=== PATIENT | male | born 1925 | race Caucasian/White ===

== ENCOUNTER 2017-05-02 16:40 | Inpatient (IN) | payer OTHER, MEDICARE ==
[~2017-05-02] VITALS: Ht 172.7 cm; Wt 54.2 kg
[2017-05-02 16:52] VITALS: BP 174/90; PULSE 97; RESP 17; TEMP 97.9; O2SAT 98
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
[2017-05-02 18:10] LABS: AUTOMATED NEUTROPHIL # 3.1 TH/MM3 (1.8-7.7); BASOPHIL % 0.5 % (0.0-2.0); EOSINOPHIL # 0.1 TH/MM3 (0-0.4); HEMATOCRIT 39.8 % (39.0-51.0); HEMOGLOBIN 13.3 GM/DL (13.0-17.0); LYMPH % 19.1 % (9.0-44.0); LYMPHOCYTE # 0.9 TH/MM3 (1.0-4.8); MEAN CELL VOLUME 89.2 FL (80.0-100.0); MEAN CORPUSCULAR HEMOGLOBIN 29.9 PG (27.0-34.0); MEAN CORPUSCULAR HGB CONC 33.6 % (32.0-36.0); MEAN PLATELET VOLUME 8.9 FL (7.0-11.0); MONO % 9.6 % (0.0-8.0); MONOCYTE # 0.4 TH/MM3 (0-0.9); NEUT % 67.8 % (16.0-70.0); PLATELET COUNT 168 TH/MM3 (150-450); RED BLOOD COUNT 4.46 MIL/MM3 (4.50-5.90); RED CELL DISTRIBUTION WIDTH 13.8 % (11.6-17.2); WHITE BLOOD COUNT 4.5 TH/MM3 (4.0-11.0)
[2017-05-02 18:16] LABS: BILIRUBIN, URINE NEG (NEG); BLOOD, URINE SMALL (NEG); GLUCOSE,URINE 1000 mg/dL (NEG); KETONE, URINE TRACE mg/dL (NEG); MUCUS URINE FEW /lpf (OCC); NITRITE,URINE NEG (NEG); SQUAMOUS EPITHELIAL CELL URINE <1 /hpf (0-5); URINE COLOR YELLOW (YELLW/STRAW); URINE LEUKOCYTE ESTERASE NEG (NEG)
--- NOTE | 2017-05-02 18:33 | RADRPT ---
EXAM DATE/TIME: 05/02/2017 18:06 [place] COMPARISON: No previous studies available for comparison. INDICATIONS : Altered mental status. RADIATION DOSE: 56.35 CTDIvol (mGy) MEDICAL HISTORY : Dementia. SURGICAL HISTORY : None. ENCOUNTER: Initial ACUITY: 2 days PAIN SCALE: Non-responsive LOCATION: cranial TECHNIQUE: Multiple contiguous axial images were obtained of the head. Using automated exposure control and adj ustment of the mA and/or kV according to patient size, radiation dose was kept as low as reasonably a chievable to obtain optimal diagnostic quality images. DICOM format image data is available electro nically for review and comparison. FINDINGS: CEREBRUM: The ventricles are normal for age. No evidence of midline shift, mass lesion, hemorrhage or acute in farction. No extra-axial fluid collections are seen. There is atrophy and chronic-appearing low atte nuation in the periventricular white matter. POSTERIOR FOSSA: The cerebellum and brainstem are intact. The 4th ventricle is midline. The cerebellopontine angle i s unremarkable. EXTRACRANIAL: The visualized portion of the orbits is intact. SKULL: The calvaria is intact. No evidence of skull fracture. CONCLUSION: No acute intracranial abnormality. Atrophy and chronic white matter changes. Clarence Fang MD on May 02, 2017 at 18:30 Board Certified Radiologist. This report was verified electronically.
[2017-05-02 18:44] LABS: ALBUMIN 3.4 GM/DL (3.4-5.0); AST (GOT) 13 U/L (15-37); BICARBONATE 26.9 MEQ/L (21.0-32.0); BLOOD UREA NITROGEN 21 MG/DL (7-18); CALCIUM 8.7 MG/DL (8.5-10.1); CHLORIDE 104 MEQ/L (98-107); CREATININE 1.58 MG/DL (0.60-1.30); GLOMERULAR FILTRATION RATE 42 ML/MIN (>89); GLUCOSE,RANDOM 308 MG/DL (74-106); SODIUM (NA) 140 MEQ/L (136-145)
[2017-05-02 18:45] LABS: ALT (GPT) 17 U/L (12-78)
[2017-05-02 18:56] LABS: ALKALINE PHOSPHATASE 100 U/L (45-117); TOTAL BILIRUBIN ADULT 0.4 MG/DL (0.2-1.0); TOTAL PROTEIN 6.7 GM/DL (6.4-8.2)
[2017-05-02] MEDS ORDERED: HALO2S PO (18:57)
[2017-05-02] MEDS ORDERED: HALO1TAB PO (18:57)
[2017-05-02] MEDS ORDERED: LORA0.5T PO (18:57)
[2017-05-02] MEDS ORDERED: SERO100T PO ×2 (18:57)
[2017-05-02] MEDS ORDERED: INSULIN HUMAN REGULAR 1,000 UNITS/10 ML VIAL IV PUSH ONE (19:30)
[2017-05-02] MEDS ORDERED: INSULIN HUMAN REGULAR 1,000 UNITS/10 ML VIAL SQ ONE (20:00)
[2017-05-03] MEDS ORDERED: LORazepam 0.5 MG TAB PO ONE (02:30)
[2017-05-03 05:50] VITALS: BP 191/88; PULSE 84; RESP 18; O2SAT 96
[2017-05-03] MEDS ORDERED: amLODIPine BESYLATE 5 MG TAB PO ONE (06:00)
[2017-05-03 08:30] VITALS: BP 147/69; PULSE 82; RESP 16; O2SAT 97
[2017-05-03 11:03] VITALS: PULSE 87; RESP 18; O2SAT 99
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
[2017-05-03] MEDS ORDERED: MAGNESIUM HYDROXIDE SUSP 30 ML CUP PO PRN (11:30)
[2017-05-03] MEDS ORDERED: ALUMINUM/MAGNESIUM/SIMETH 30 ML CUP PO PRN (11:30)
[2017-05-03] MEDS ORDERED: DEXTROSE 50% IN WATER 50 ML VIAL(D50) IV PUSH PRN (12:15)
[2017-05-03] MEDS ORDERED: GLUCAGON 1 MG/ML VIAL OTHER PRN (12:15)
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
[2017-05-03] MEDS ORDERED: DONE10TA7 PO (14:38)
[2017-05-03] MEDS ORDERED: MEMA1TAB PO (14:38)
[2017-05-03] MEDS ORDERED: CAPT25TA2 PO (14:38)
[2017-05-03] MEDS ORDERED: SIMV20TA PO (14:38)
[2017-05-03] MEDS ORDERED: TRAM50TA PO (14:38)
[2017-05-03] MEDS: SODIUM CHLOR 0.9% 1000 ML INJ 1,000 ML IV SCH (14:48)
[2017-05-03 16:17] VITALS: BP 182/93; PULSE 91; RESP 17; TEMP 98.7; O2SAT 93
[2017-05-03] MEDS: INSULIN ASPART SUPPLEMENTAL SCALE SQ SCH ×2 (16:32→20:42)
[2017-05-03] MEDS: PRAVASTATIN SOD 20 MG TAB PO SCH (20:32)
[2017-05-03] MEDS: DONEPEZIL HCL 5 MG TAB PO SCH (20:33)
[2017-05-04 06:00] VITALS: BP 104/72; PULSE 90; RESP 18; TEMP 97.3; O2SAT 97
[2017-05-04] MEDS: MEMANTINE HCL 5 MG TAB PO SCH (07:58)
[2017-05-04] MEDS: INSULIN ASPART SUPPLEMENTAL SCALE SQ SCH ×4 (07:58→20:45)
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
[2017-05-04] MEDS: SODIUM CHLOR 0.9% 1000 ML INJ 1,000 ML IV SCH (12:00)
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
[2017-05-04] MEDS ORDERED: PILL SPLITTER OTHER PRN (12:30)
[2017-05-04 14:18] LABS: BICARBONATE 26.1 MEQ/L (21.0-32.0); BLOOD UREA NITROGEN 16 MG/DL (7-18); CALCIUM 8.9 MG/DL (8.5-10.1); CHLORIDE 107 MEQ/L (98-107); CHOLESTEROL 150 MG/DL (120-200); CREATININE 1.48 MG/DL (0.60-1.30); GLOMERULAR FILTRATION RATE 45 ML/MIN (>89); GLUCOSE,RANDOM 254 MG/DL (74-106); SODIUM (NA) 141 MEQ/L (136-145)
[2017-05-04 14:25] LABS: FREE T4 0.92 NG/DL (0.76-1.46)
[2017-05-04 14:34] LABS: CHOLESTEROL/ HDL RATIO 3.78 RATIO; HDL CHOLESTEROL 39.6 MG/DL (40.0-60.0); LDL CHOLESTEROL 90 MG/DL (0-99); TRIGLYCERIDES 102 MG/DL (42-150)
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
[2017-05-04 16:52] LABS: HEMOGLOBIN A1C 11.2 % (4.3-6.0)
[2017-05-04] MEDS: cloNIDine HCL 0.1 MG TAB PO PRN (17:25)
--- NOTE | 2017-05-04 17:26 | EKG ---
Date Performed: 05/04/2017 Time Performed: 07:11:22 PTAGE: 89 years EKG: Sinus rhythm MARKED LEFT AXIS DEVIATION ABNORMAL ECG NO PREVIOUS TRACING DOCTOR: Calin Ohara Interpretating Date/Time 05/04/2017 17:25:36
[2017-05-04 18:11] VITALS: BP 179/90; PULSE 103; RESP 17; TEMP 97.3; O2SAT 99
[2017-05-04 19:02] VITALS: BP 147/79; PULSE 92
[2017-05-04] MEDS: risperiDONE 0.25 MG TAB PO SCH (20:44)
[2017-05-04] MEDS: PRAVASTATIN SOD 20 MG TAB PO SCH (20:44)
[2017-05-04] MEDS: DONEPEZIL HCL 5 MG TAB PO SCH (20:44)
[2017-05-04] MEDS ORDERED: QUEtiapine FUMARATE 25 MG TAB PO SCH (21:00)
[2017-05-04 22:26] VITALS: BP 130/79; PULSE 89
[2017-05-05] VITALS (7 sets, daily range): BP systolic 107–180; BP diastolic 58–87; PULSE 74–104; RESP 16–20; TEMP 97.3–98.5; O2SAT 96–98
[2017-05-05] MEDS: risperiDONE 0.25 MG TAB PO SCH (07:45)
[2017-05-05] MEDS: MEMANTINE HCL 5 MG TAB PO SCH (07:45)
[2017-05-05] MEDS: cloNIDine HCL 0.1 MG TAB PO PRN (07:45)
[2017-05-05] MEDS: INSULIN ASPART SUPPLEMENTAL SCALE SQ SCH ×4 (07:51→21:45)
--- NOTE | 2017-05-05 09:13 | HHI.PYPN ---
Subjective Remarks Patient seen for follow-up, chart reviewed. Discussion she staff reported the patient slept about 3 hours last evening was up this morning and at tried to elope twice but was able to be redirected. Patient was found lying on the unit this morning but reviewed in her room but to be calm and cooperative. Patient continues to be alert and oriented only to person. Patient states that his mood has been "okay" denying any depressive symptoms at this time. Patient states he has slept well despite nursing report stating the contrary. Patient reports tolerating medications well. Patient denies SI, HI, AVH or delusions. Review of Systems Except as stated in HPI: all other systems reviewed are Neg Mental Status Examination Appearance: Disheveled Consciousness: Alert Orientation: Person Motor Activity: Other (in bed) Speech: Slow Language: Adequate Fund of Knowledge: Poor (unable to evaluate) Attention and Concentration: Inadequate Memory: Impaired Mood: Appropriate Affect: Appropriate Thought Process & Associations: Intact, Linear Thought Content: Appropriate, Other (unable to determine) Hallucination Type: None Delusion Type: None Suicidal Ideation: No Suicidal Plan: No Suicidal Intention: No Homicidal Ideation: No Homicidal Plan: No Homicidal Intention: No Insight: Poor Judgment: Poor Results Labs Labs reviewed Test 05/04/17 12:55 Blood Urea Nitrogen 16 MG/DL Creatinine 1.48 MG/DL Random Glucose 254 MG/DL Calcium Level 8.9 MG/DL Sodium Level 141 MEQ/L Potassium Level 3.5 MEQ/L Chloride Level 107 MEQ/L Carbon Dioxide Level 26.1 MEQ/L Anion Gap 8 MEQ/L Estimat Glomerular Filtration Rate 45 ML/MIN Hemoglobin A1c 11.2 % Triglycerides Level 102 MG/DL Cholesterol Level 150 MG/DL LDL Cholesterol 90 MG/DL HDL Cholesterol 39.6 MG/DL Cholesterol/HDL Ratio 3.78 RATIO Vitamin B12 Level 329 PG/ML 25-Hydroxy Vitamin D Total 11.5 ng/ML Free Thyroxine 0.92 NG/DL Thyroid Stimulating Hormone 3rd Gen 1.060 uIU/ML Vitals/IOs Vital Signs Date Time Temp Pulse Resp B/P (MAP) Pulse Ox O2 Delivery O2 Flow Rate FiO2 05/05/17 08:55 92 107/58 (74) 05/05/17 05:58 97.4 16 97 05/03/17 11:03 Room Air Intake and Output 05/05/17 05/05/17 05/06/17 08:00 16:00 00:00 Intake Total 0 ml 120 ml Balance 0 ml 120 ml Assessment & Plan Problem List: (1) OTHER ALZHEIMER'S DISEASE ICD Codes: G30.8 - OTHER ALZHEIMER'S DISEASE (2) Dementia with behavioral disturbance ICD Codes: F03.91 - Unspecified dementia with behavioral disturbance Status: Acute Assessment & Plan She at this time has not had any behavioral disturbances although noted to try to elope the unit twice but was redirectable. Patient continues to be noted to be confused and disoriented although has not had any behavioral disturbances since admission but did have a threatening comment earlier this morning when woken up by staff. Patient tolerating medications well. We'll increase risperidone to 0.25 by mouth daily and 0.5 by mouth at bedtime. Continue moderate 20 behavior. Continue recommendations as per primary medical team. Continue fall precautions. Continue PT and OT. Discharge planning in progress Justification for Cont. Inpt. At risk for decompensation at lower level of care Discharge Planning Patient to be discharged to senior living when one is required. Problem Qualifiers (1) Dementia with behavioral disturbance: Qualified Codes: F03.91 - Unspecified dementia with behavioral disturbance Henry Holliday MD May 05, 2017 09:13
--- NOTE | 2017-05-05 09:46 | HHI.PR ---
Subjective Remarks Patient states he is doing ok today. Pleasantly demented. TAYLOR RN. He has been cooperative. Objective Vitals Vital Signs Date Time Temp Pulse Resp B/P (MAP) Pulse Ox O2 Delivery O2 Flow Rate FiO2 05/05/17 08:55 92 107/58 (74) 05/05/17 05:58 97.4 79 16 180/87 (118) 97 05/04/17 22:26 89 130/79 (96) 05/04/17 19:02 92 147/79 (101) 05/04/17 18:11 97.3 103 17 179/90 (119) 99 I/O 05/04/17 05/04/17 05/04/17 05/05/17 05/05/17 05/05/17 06:59 14:59 22:59 06:59 14:59 22:59 Intake Total 960 ml 720 ml 1720 ml 0 ml 120 ml Balance 960 ml 720 ml 1720 ml 0 ml 120 ml Intake Oral 960 ml 720 ml 720 ml 0 ml 120 ml IV Total 1000 ml # Voids 1 4 1 # Bowel Movements 2 2 Result Diagram: 05/02/17 1715 05/04/17 1255 Objective Remarks GENERAL: Pleasantly demented. CARDIOVASCULAR: Regular rate and rhythm. RESPIRATORY: No accessory muscle use. Clear to auscultation. Breath sounds equal bilaterally. GASTROINTESTINAL: Abdomen soft, non-tender, nondistended. Hepatic and splenic margins not palpable. MUSCULOSKELETAL: Extremities without clubbing, cyanosis, or edema. No obvious deformities. NEUROLOGICAL: Awake and alert. No obvious cranial nerve deficits. Motor grossly within normal limits. Five out of 5 muscle strength in the arms and legs. Normal speech. PSYCHIATRIC: Calm A/P Problem List: (1) DARNELL (acute kidney injury) ICD Code: N17.9 - Acute kidney failure, unspecified (2) Dementia with behavioral disturbance ICD Code: F03.91 - Unspecified dementia with behavioral disturbance Status: Acute (3) Hyperglycemia ICD Code: R73.9 - Hyperglycemia, unspecified Status: Acute Assessment and Plan 89-year-old male with history of diabetes, dementia, hypertension, hyperlipidemia, presents from [facility] under [email or web address] Act for aggressive behavior. Dementia with behavioral disturbance: Currently under [email or web address] act for aggressive behavior. -Continue management per psychiatry -Continue patient's aricept and namenda DARNELL: Patient denies any history of kidney disease. Suspect secondary to dehydration. Improving. ?close to baseline -encourage oral intake -avoid nephrotoxins -hold patient's metformin -monitor renal function Diabetes with Hyperglycemia: Uncontrolled. Hgb A1C of 11.3. At this point he requires insulin. - Start Levemir 5 units BID -monitor accu-checks and cover with SSI -hypoglycemia protocol Accelerated Hypertension: - Resume Captopril -clonidine prn -monitor BP, adjust antihypertensives as needed Hyperlipidemia: chronic -continue patient's statin DVT Prophylaxis: ambulation Problem Qualifiers (1) Dementia with behavioral disturbance: Qualified Codes: F03.91 - Unspecified dementia with behavioral disturbance Fabi Mccarthy MD May 05, 2017 09:46
[2017-05-05] MEDS: CAPTOPRIL 25 MG TAB PO SCH (17:23)
--- NOTE | 2017-05-05 21:14 | RADRPT ---
EXAM DATE/TIME: 05/05/2017 21:02 [place] COMPARISON: CT BRAIN W/O CONTRAST, May 02, 2017, 18:06. INDICATIONS : Altered mental status RADIATION DOSE: 52.13 CTDIvol (mGy) MEDICAL HISTORY : Hypertension. Diabetes mellitus type 1. Carcinoma, prostate. SURGICAL HISTORY : Appendectomy. ENCOUNTER: Subsequent ACUITY: 3 days PAIN SCALE: 0/10 LOCATION: cranial TECHNIQUE: Multiple contiguous axial images were obtained of the head. Using automated exposure control and adj ustment of the mA and/or kV according to patient size, radiation dose was kept as low as reasonably a chievable to obtain optimal diagnostic quality images. DICOM format image data is available electro nically for review and comparison. FINDINGS: Stable cerebral atrophy is noted. Periventricular and subcortical white matter small vessel ischemic changes are also again noted. There is no acute infarct, acute hemorrhage, midline shift or extra-axi al fluid collections CONCLUSION: 1. Stable cerebral atrophy and periventricular/subcortical white matter small vessel ischemic changes bilaterally. 2. No acute infarct, acute hemorrhage, mass effect or extra-axial fluid collections. Himanshu Henriquez MD on May 05, 2017 at 21:09 Board Certified Radiologist. This report was verified electronically.
[2017-05-05] MEDS: ACETAMINOPHEN 325 MG TAB PO PRN (21:44)
[2017-05-05] MEDS: DONEPEZIL HCL 5 MG TAB PO SCH (21:44)
[2017-05-05] MEDS: risperiDONE 0.5 MG TAB PO SCH (21:44)
[2017-05-05] MEDS: PRAVASTATIN SOD 20 MG TAB PO SCH (21:44)
[2017-05-05] MEDS: INSULIN DETEMIR 100 UNITS/ML VIAL SQ SCH (21:44)
[2017-05-06 00:15] VITALS: BP 189/88; PULSE 78; RESP 16; O2SAT 96
[2017-05-06] MEDS: cloNIDine HCL 0.1 MG TAB PO PRN (03:22)
[2017-05-06 04:20] VITALS: BP 172/78; PULSE 79; RESP 16; TEMP 97.5; O2SAT 98
[2017-05-06] MEDS: CAPTOPRIL 25 MG TAB PO SCH ×2 (06:43→16:00)
[2017-05-06] MEDS: INSULIN ASPART SUPPLEMENTAL SCALE SQ SCH ×4 (08:59→21:00)
[2017-05-06] MEDS: INSULIN DETEMIR 100 UNITS/ML VIAL SQ SCH ×2 (09:00→21:00)
[2017-05-06] MEDS: MEMANTINE HCL 5 MG TAB PO SCH (09:00)
[2017-05-06] MEDS: risperiDONE 0.25 MG TAB PO SCH (09:00)
--- NOTE | 2017-05-06 09:27 | HHI.PR ---
Subjective Remarks Patient had a mechanical fall yesterday evening. Head CT unremarkable. No other injuries. He reports that he is feeling okay today. He has no complaints. Objective Vitals Vital Signs Date Time Temp Pulse Resp B/P (MAP) Pulse Ox O2 Delivery O2 Flow Rate FiO2 05/06/17 04:20 97.5 79 16 172/78 (109) 98 05/06/17 00:15 78 16 189/88 (121) 96 05/05/17 20:40 97.9 74 16 165/68 (100) 96 05/05/17 19:52 97.3 85 16 132/74 (93) 96 05/05/17 18:10 97.6 91 16 125/60 (81) 97 05/05/17 17:04 98.2 92 20 169/83 (111) 97 05/05/17 16:04 98.5 104 18 131/65 (87) 98 I/O 05/05/17 05/05/17 05/05/17 05/06/17 05/06/17 05/06/17 06:59 14:59 22:59 06:59 14:59 22:59 Intake Total 0 ml 600 ml 480 ml Balance 0 ml 600 ml 480 ml Intake Oral 0 ml 600 ml 480 ml # Voids 1 3 # Bowel Movements 2 Result Diagram: 05/02/17 1715 05/04/17 1255 Objective Remarks GENERAL: Pleasantly demented. CARDIOVASCULAR: Regular rate and rhythm. RESPIRATORY: No accessory muscle use. Clear to auscultation. Breath sounds equal bilaterally. GASTROINTESTINAL: Abdomen soft, non-tender, nondistended. Hepatic and splenic margins not palpable. MUSCULOSKELETAL: Extremities without clubbing, cyanosis, or edema. No obvious deformities. NEUROLOGICAL: Awake and alert. No obvious cranial nerve deficits. Motor grossly within normal limits. Five out of 5 muscle strength in the arms and legs. Normal speech. PSYCHIATRIC: Calm A/P Problem List: (1) DARNELL (acute kidney injury) ICD Code: N17.9 - Acute kidney failure, unspecified (2) Dementia with behavioral disturbance ICD Code: F03.91 - Unspecified dementia with behavioral disturbance Status: Acute (3) Hyperglycemia ICD Code: R73.9 - Hyperglycemia, unspecified Status: Acute Assessment and Plan 89-year-old male with history of diabetes, dementia, hypertension, hyperlipidemia, presents from [facility] Act for aggressive behavior. Dementia with behavioral disturbance: Currently under [employer] act for aggressive behavior. -Continue management per psychiatry -Continue patient's aricept and namenda Mechanical fall: No injuries. - Consult PT DARNELL: Patient denies any history of kidney disease. Suspect secondary to dehydration. Improved. Seems to be at his baseline now. -encourage oral intake -avoid nephrotoxins -hold patient's metformin -monitor renal function periodically Diabetes with Hyperglycemia: Uncontrolled. Hgb A1C of 11.3. At this point he requires insulin. -Continue Levemir 5 units BID -monitor accu-checks and cover with SSI -hypoglycemia protocol Accelerated Hypertension: - Resume Captopril -clonidine prn -monitor BP, adjust antihypertensives as needed Hyperlipidemia: chronic -continue patient's statin DVT Prophylaxis: ambulation Discharge Planning We'll continue to follow blood glucose. PT consult. Problem Qualifiers (1) Dementia with behavioral disturbance: Qualified Codes: F03.91 - Unspecified dementia with behavioral disturbance Fabi Mccarthy MD May 06, 2017 09:26
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
[2017-05-06 18:06] VITALS: BP 153/86; PULSE 100; RESP 16; TEMP 97.7; O2SAT 96
[2017-05-06] MEDS: PRAVASTATIN SOD 20 MG TAB PO SCH (21:00)
[2017-05-06] MEDS: risperiDONE 0.5 MG TAB PO SCH ×2 (21:00→23:50)
[2017-05-06] MEDS: DONEPEZIL HCL 5 MG TAB PO SCH ×2 (21:00→23:50)
[2017-05-07] MEDS: CAPTOPRIL 25 MG TAB PO SCH ×2 (06:23→15:43)
[2017-05-07 06:37] VITALS: BP 177/86; PULSE 86; RESP 20; TEMP 97.3; O2SAT 95
[2017-05-07] MEDS: INSULIN ASPART SUPPLEMENTAL SCALE SQ SCH ×4 (07:55→21:00)
[2017-05-07] MEDS: INSULIN DETEMIR 100 UNITS/ML VIAL SQ SCH ×2 (07:56→21:00)
[2017-05-07] MEDS: risperiDONE 0.25 MG TAB PO SCH (07:57)
[2017-05-07] MEDS: MEMANTINE HCL 5 MG TAB PO SCH (07:57)
--- NOTE | 2017-05-07 09:05 | HHI.PR ---
Subjective Remarks in no acute distress. denies pain. d/w the RN and reported poor oral intake. no other acute issues over night. Objective Vitals Vital Signs Date Time Temp Pulse Resp B/P (MAP) Pulse Ox O2 Delivery O2 Flow Rate FiO2 05/07/17 06:37 97.3 86 20 177/86 (116) 95 05/06/17 18:06 97.7 100 16 153/86 (108) 96 I/O 05/06/17 05/06/17 05/06/17 05/07/17 05/07/17 05/07/17 07:00 15:00 23:00 07:00 15:00 23:00 Intake Total 480 ml 120 ml 240 ml 30 ml Balance 480 ml 120 ml 240 ml 30 ml Intake Oral 480 ml 120 ml 240 ml 30 ml # Voids 4 2 # Bowel Movements 3 Result Diagram: 05/04/17 1255 Imaging Last Impressions Head CT 05/05/17 0000 Signed Impressions: Service Date/Time: Friday, May 05, 2017 21:02 - CONCLUSION: 1. Stable cerebral atrophy and periventricular/subcortical white matter small vessel ischemic changes bilaterally. 2. No acute infarct, acute hemorrhage, mass effect or extra-axial fluid collections. Himanshu Henriquez MD Objective Remarks GENERAL: This is a well-nourished, well-developed patient, in no apparent distress. CARDIOVASCULAR: Regular rate and regular rhythm without murmurs, gallops, or rubs. RESPIRATORY: Clear to auscultation. Breath sounds equal bilaterally. No wheezes , rales, or rhonchi. GASTROINTESTINAL: Abdomen soft, non-tender, nondistended. Normal, active bowel sounds MUSCULOSKELETAL: Extremities without clubbing, cyanosis, or edema. NEURO: awake and alert Medications and IVs Inpatient Medications Acetaminophen (Tylenol) 650 mg Q4H PRN PO Pain 1-5 or Temp >101F Last administered on 05/05/17at 21:44; Start 05/03/17 at 11:30 Al Hydrox/Mg Hydrox/Simethicone (Mag-Al Plus Susp Liq) 30 ml Q6H PRN PO DYSPEPSIA; Start 05/03/17 at 11:30; Stop 05/03/17 at 12:45; Status DC Amlodipine Besylate (Norvasc) 2.5 mg ONCE ONCE PO Last administered on at 06:05; Start 05/03/17 at 06:00; Stop 05/03/17 at 06:01; Status DC Captopril (Capoten) 25 mg BIDAC PO Last administered on 05/07/17at 06:23; Start 05/05/17 at 16:00 Clonidine (Catapres) 0.1 mg Q6H PRN PO BP>180/100 Last administered on at 03:22; Start 05/03/17 at 12:15 Dextrose (D50w (Vial) Inj) 50 ml UNSCH PRN IV PUSH HYPOGLYCEMIA-SEE COMMENTS Last administered on 05/03/17at 23:32; Start 05/03/17 at 12:15 Donepezil HCl (Aricept) 10 mg HS PO Last administered on 05/06/17at 23:50; Start 05/03/17 at 21:00 Glucagon (Glucagon Inj) 1 mg UNSCH PRN OTHER HYPOGLYCEMIA-SEE COMMENTS; Start 05/03/17 at 12:15 Insulin Aspart (NovoLOG SUPPLEMENTAL SCALE) 1 ACHS SLIDING SCALE SQ Last administered on 05/07/17at 07:55; Start 05/03/17 at 17:00 Insulin Detemir (Levemir Inj) 5 units Q12HR SQ Last administered on 05/07/17 07 :56; Start 05/05/17 at 21:00 Insulin Human Regular (NovoLIN R INJ) 4 units ONCE ONCE SQ Last administered on 05/02/17at 19:58; Start 05/02/17 at 20:00; Stop 05/02/17 at 20:01; Status DC Lorazepam (Ativan) 0.5 mg ONCE ONCE PO Last administered on 05/03/17at 03:26; Start 05/03/17 at 02:30; Stop 05/03/17 at 02:31; Status DC Magnesium Hydroxide (Milk Of Magnesia Liq) 30 ml DAILY PRN PO CONSTIPATION; Start 05/03/17 at 11:30; Stop 05/03/17 at 12:45; Status DC Memantine (Namenda) 5 mg DAILY PO Last administered on 05/07/17at 07:57; Start at 09:00 Miscellaneous (Pill Splitter) 1 ea UNSCH PRN OTHER SEE LABEL COMMENTS; Start at 12:30 Pravastatin Sodium (Pravachol) 20 mg HS PO Last administered on 05/06/17at 21:00 ; Start 05/03/17 at 21:00 Quetiapine Fumarate (SEROquel) 12.5 mg BID PO ; Start 05/04/17 at 21:00; Stop at 21:00; Status DC Risperidone (risperDAL) 0.5 mg HS PO Last administered on 05/06/17at 23:50; Start 05/05/17 at 21:00 Sodium Chloride 1,000 ml @ 50 mls/hr Q20H IV Last administered on 05/04/17at 12 :00; Start 05/03/17 at 12:45; Stop 05/04/17 at 18:56; Status DC A/P Problem List: (1) DARNELL (acute kidney injury) ICD Code: N17.9 - Acute kidney failure, unspecified (2) Dementia with behavioral disturbance ICD Code: F03.91 - Unspecified dementia with behavioral disturbance Status: Acute (3) Hyperglycemia ICD Code: R73.9 - Hyperglycemia, unspecified Status: Acute Assessment and Plan A/P Dementia with behavioral disturbance: Currently under [place] act for aggressive behavior. -Continue management per psychiatry -Continue patient's aricept and namenda Mechanical fall: No injuries. - Consulted PT DARNELL: Patient denies any history of kidney disease. Suspect secondary to dehydration. Improved. Seems to be at his baseline now. -encourage oral intake -avoid nephrotoxins -hold patient's metformin -monitor renal function periodically Diabetes with Hyperglycemia: Uncontrolled. Hgb A1C of 11.3. At this point he requires insulin. -Continue Levemir 5 units BID -monitor accu-checks and cover with SSI -hypoglycemia protocol Accelerated Hypertension: - Resumed Captopril -clonidine prn -monitor BP, adjust antihypertensives as needed poor oral intake - will add ensure -consulted care navigator. Hyperlipidemia: chronic -continue patient's statin DVT Prophylaxis: ambulation Problem Qualifiers (1) Dementia with behavioral disturbance: Qualified Codes: F03.91 - Unspecified dementia with behavioral disturbance Gloria Goddard MD May 07, 2017 09:05
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
[2017-05-07 18:08] VITALS: BP 188/91; PULSE 82; RESP 20; TEMP 97.1; O2SAT 94
[2017-05-07] MEDS: DONEPEZIL HCL 5 MG TAB PO SCH (21:00)
[2017-05-07] MEDS: risperiDONE 0.5 MG TAB PO SCH (21:00)
[2017-05-07] MEDS: PRAVASTATIN SOD 20 MG TAB PO SCH (21:00)
[2017-05-08 05:21] VITALS: BP 100/80; PULSE 85; RESP 16; TEMP 97.5; O2SAT 98
[2017-05-08] MEDS: CAPTOPRIL 25 MG TAB PO SCH ×2 (06:37→16:00)
[2017-05-08] MEDS: INSULIN ASPART SUPPLEMENTAL SCALE SQ SCH ×4 (08:00→21:00)
--- NOTE | 2017-05-08 08:43 | HHI.PR ---
Subjective Remarks in no acute distress. denies pain. Objective Vitals Vital Signs Date Time Temp Pulse Resp B/P (MAP) Pulse Ox O2 Delivery O2 Flow Rate FiO2 05/08/17 07:49 05/08/17 05:21 97.5 85 16 100/80 (87) 98 05/07/17 18:08 97.1 82 20 188/91 (123) 94 I/O 05/07/17 05/07/17 05/07/17 05/08/17 05/08/17 05/08/17 07:00 15:00 23:00 07:00 15:00 23:00 Intake Total 240 ml 300 ml 720 ml 60 ml 0 ml Balance 240 ml 300 ml 720 ml 60 ml 0 ml Intake Oral 240 ml 300 ml 720 ml 60 ml IV Total 0 ml # Voids 2 3 1 Result Diagram: 05/04/17 1255 Imaging Last Impressions Head CT 05/05/17 0000 Signed Impressions: Service Date/Time: Friday, May 05, 2017 21:02 - CONCLUSION: 1. Stable cerebral atrophy and periventricular/subcortical white matter small vessel ischemic changes bilaterally. 2. No acute infarct, acute hemorrhage, mass effect or extra-axial fluid collections. Himanshu Henriquez MD Objective Remarks GENERAL: This is a well-nourished, well-developed patient, in no apparent distress. CARDIOVASCULAR: Regular rate and regular rhythm without murmurs, gallops, or rubs. RESPIRATORY: Clear to auscultation. Breath sounds equal bilaterally. No wheezes , rales, or rhonchi. GASTROINTESTINAL: Abdomen soft, non-tender, nondistended. Normal, active bowel sounds MUSCULOSKELETAL: Extremities without clubbing, cyanosis, or edema. NEURO: awake and alert Medications and IVs Inpatient Medications Acetaminophen (Tylenol) 650 mg Q4H PRN PO Pain 1-5 or Temp >101F Last administered on 05/05/17at 21:44; Start 05/03/17 at 11:30 Al Hydrox/Mg Hydrox/Simethicone (Mag-Al Plus Susp Liq) 30 ml Q6H PRN PO DYSPEPSIA; Start 05/03/17 at 11:30; Stop 05/03/17 at 12:45; Status DC Amlodipine Besylate (Norvasc) 2.5 mg ONCE ONCE PO Last administered on at 06:05; Start 05/03/17 at 06:00; Stop 05/03/17 at 06:01; Status DC Captopril (Capoten) 25 mg BIDAC PO Last administered on 05/08/17at 06:37; Start 05/05/17 at 16:00 Clonidine (Catapres) 0.1 mg Q6H PRN PO BP>180/100 Last administered on at 03:22; Start 05/03/17 at 12:15 Dextrose (D50w (Vial) Inj) 50 ml UNSCH PRN IV PUSH HYPOGLYCEMIA-SEE COMMENTS Last administered on 05/03/17at 23:32; Start 05/03/17 at 12:15 Donepezil HCl (Aricept) 10 mg HS PO Last administered on 05/07/17at 21:00; Start 05/03/17 at 21:00 Glucagon (Glucagon Inj) 1 mg UNSCH PRN OTHER HYPOGLYCEMIA-SEE COMMENTS; Start 05/03/17 at 12:15 Insulin Aspart (NovoLOG SUPPLEMENTAL SCALE) 1 ACHS SLIDING SCALE SQ Last administered on 05/07/17at 21:00; Start 05/03/17 at 17:00 Insulin Detemir (Levemir Inj) 5 units Q12HR SQ Last administered on 05/07/17at 21 :00; Start 05/05/17 at 21:00 Insulin Human Regular (NovoLIN R INJ) 4 units ONCE ONCE SQ Last administered on 05/02/17at 19:58; Start 05/02/17 at 20:00; Stop 05/02/17 at 20:01; Status DC Lorazepam (Ativan) 0.5 mg ONCE ONCE PO Last administered on 05/03/17at 03:26; Start 05/03/17 at 02:30; Stop 05/03/17 at 02:31; Status DC Magnesium Hydroxide (Milk Of Magnesia Liq) 30 ml DAILY PRN PO CONSTIPATION; Start 05/03/17 at 11:30; Stop 05/03/17 at 12:45; Status DC Memantine (Namenda) 5 mg DAILY PO Last administered on 05/07/17at 07:57; Start at 09:00 Miscellaneous (Pill Splitter) 1 ea UNSCH PRN OTHER SEE LABEL COMMENTS; Start at 12:30 Pravastatin Sodium (Pravachol) 20 mg HS PO Last administered on 05/07/17at 21:00 ; Start 05/03/17 at 21:00 Quetiapine Fumarate (SEROquel) 12.5 mg BID PO ; Start 05/04/17 at 21:00; Stop at 21:00; Status DC Risperidone (risperDAL) 0.5 mg HS PO Last administered on 05/07/17at 21:00; Start 05/05/17 at 21:00 Sodium Chloride 1,000 ml @ 50 mls/hr Q20H IV Last administered on 05/04/17at 12 :00; Start 05/03/17 at 12:45; Stop 05/04/17 at 18:56; Status DC A/P Problem List: (1) DARNELL (acute kidney injury) ICD Code: N17.9 - Acute kidney failure, unspecified (2) Dementia with behavioral disturbance ICD Code: F03.91 - Unspecified dementia with behavioral disturbance Status: Acute (3) Hyperglycemia ICD Code: R73.9 - Hyperglycemia, unspecified Status: Acute Assessment and Plan A/P Dementia with behavioral disturbance: Currently under Archibald act for aggressive behavior. -Continue management per psychiatry -Continue patient's aricept and namenda Mechanical fall: No injuries. - Consulted PT DARNELL: Patient denies any history of kidney disease. Suspect secondary to dehydration. Improved. Seems to be at his baseline now. -encourage oral intake -avoid nephrotoxins -hold patient's metformin -monitor renal function periodically Diabetes with Hyperglycemia: Uncontrolled. Hgb A1C of 11.3. At this point he requires insulin. -Continue Levemir 5 units BID -monitor accu-checks and cover with SSI -hypoglycemia protocol Accelerated Hypertension: - Resumed Captopril -clonidine prn -monitor BP, adjust antihypertensives as needed poor oral intake - added glucjesus garcia -consulted systems integration manager. Hyperlipidemia: chronic -continue patient's statin DVT Prophylaxis: ambulation Problem Qualifiers (1) Dementia with behavioral disturbance: Qualified Codes: F03.91 - Unspecified dementia with behavioral disturbance Gloria Goddard MD May 08, 2017 08:43
[2017-05-08] MEDS: risperiDONE 0.25 MG TAB PO SCH (08:45)
[2017-05-08] MEDS: MEMANTINE HCL 5 MG TAB PO SCH (08:45)
[2017-05-08] MEDS: INSULIN DETEMIR 100 UNITS/ML VIAL SQ SCH ×2 (08:45→21:00)
--- NOTE | 2017-05-08 11:04 | HHI.PYPN ---
Subjective Remarks Patient seen for follow, chart review. Discussion nursing staff reported the patient hasn't had any behavioral disturbances. Patient was found lying in hospital bed, cooperative. Patient continues report feeling okay, denies any physical complaints at this time, denies any medical eating or drinking or difficulty bowel movement. Patient continues to be alert and oriented only to person, confused secondary to his neurocognitive deficits. Review of Systems Except as stated in HPI: all other systems reviewed are Neg Mental Status Examination Appearance: Disheveled Consciousness: Alert Orientation: Person Motor Activity: Other (in bed) Speech: Slow Language: Adequate Fund of Knowledge: Poor (unable to evaluate) Attention and Concentration: Inadequate Memory: Impaired Mood: Appropriate Affect: Appropriate Thought Process & Associations: Intact, Linear Thought Content: Appropriate, Other (unable to determine) Hallucination Type: None Delusion Type: None Suicidal Ideation: No Suicidal Plan: No Suicidal Intention: No Homicidal Ideation: No Homicidal Plan: No Homicidal Intention: No Insight: Poor Judgment: Poor Results Vitals/IOs Vital Signs Date Time Temp Pulse Resp B/P (MAP) Pulse Ox O2 Delivery O2 Flow Rate FiO2 05/08/17 07:49 05/08/17 05:21 97.5 85 16 98 Intake and Output 05/08/17 05/08/17 05/09/17 08:00 16:00 00:00 Intake Total 60 ml Balance 60 ml Assessment & Plan Problem List: (1) OTHER ALZHEIMER'S DISEASE ICD Codes: G30.8 - OTHER ALZHEIMER'S DISEASE (2) Dementia with behavioral disturbance ICD Codes: F03.91 - Unspecified dementia with behavioral disturbance Status: Acute Assessment & Plan Patient with no behavioral disturbances recently, tolerating medications well without any adverse drug reactions. Continue current treatment. Continue to monitor mood and behavior. Continue recommendations as per primary medical team. Patient to continue on fall precautions. Continue to assist patient with ADLs. Discharge planning in progress. Justification for Cont. Inpt. At risk for further decompensation if at lower level of care Discharge Planning Patient to be placed in retirement when one is acquired Problem Qualifiers (1) Dementia with behavioral disturbance: Qualified Codes: F03.91 - Unspecified dementia with behavioral disturbance Henry Holliday MD May 08, 2017 11:04
--- NOTE | 2017-05-08 15:51 | PD.TTN ---
Patient Problems 1. Discharge planning 2. Medication compliance 3. Knowledge deficit 4. Lack of coping skills Progress Toward Goals Provider Present: Dr. Justin Holliday Provider Input: 05/08/2017 Per doctor, patient has been sun downing during the evenging; no med changes at this time Nurse(s) Present: RN Nurse(s) Input: Patient is redirectable, eating meals and taking his medication Psychiatric Counselors Present: ELLIOTT Rodriguez Psych Therapist Input: 05/08/2017 Assign counselor is working with family to establish appropriate placement Group Spec/RT/OT/[place] Present: Maxime Adler OT Group Spec/RT/OT/[place] Input: 05/08/2017; patient has been unable to participate with groups, display poor coping and communication skills Documentation Scribe: ELLIOTT Rodriguez Sandra LMHC May 08, 2017 15:51
[2017-05-08 16:23] LABS: BICARBONATE 27.7 MEQ/L (21.0-32.0); CALCIUM 8.7 MG/DL (8.5-10.1); CREATININE 1.55 MG/DL (0.60-1.30)
[2017-05-08 17:52] VITALS: BP 117/63; PULSE 96; RESP 16; TEMP 97.4; O2SAT 96
[2017-05-08] MEDS: PRAVASTATIN SOD 20 MG TAB PO SCH (21:00)
[2017-05-08] MEDS: risperiDONE 0.5 MG TAB PO SCH (21:00)
[2017-05-08] MEDS: DONEPEZIL HCL 5 MG TAB PO SCH (21:00)
[2017-05-09 06:00] VITALS: BP 160/64; PULSE 88; RESP 17; TEMP 97.9; O2SAT 92
[2017-05-09] MEDS: CAPTOPRIL 25 MG TAB PO SCH ×2 (06:34→16:00)
[2017-05-09] MEDS: INSULIN ASPART SUPPLEMENTAL SCALE SQ SCH ×4 (08:00→21:00)
[2017-05-09] MEDS: MEMANTINE HCL 5 MG TAB PO SCH (08:44)
[2017-05-09] MEDS: risperiDONE 0.25 MG TAB PO SCH (08:44)
[2017-05-09] MEDS: INSULIN DETEMIR 100 UNITS/ML VIAL SQ SCH ×2 (08:44→21:59)
--- NOTE | 2017-05-09 09:25 | HHI.PR ---
Subjective Remarks in no acute distress. awake and alert. denies pain. d/w the RN and no acute issues over night. Objective Vitals Vital Signs Date Time Temp Pulse Resp B/P (MAP) Pulse Ox O2 Delivery O2 Flow Rate FiO2 05/09/17 07:47 05/09/17 06:00 97.9 88 17 160/64 (96) 92 05/08/17 17:52 97.4 96 16 117/63 (81) 96 05/08/17 15:06 05/08/17 11:14 I/O 05/08/17 05/08/17 05/08/17 05/09/17 05/09/17 05/09/17 07:00 15:00 23:00 07:00 15:00 23:00 Intake Total 60 ml 0 ml 120 ml 90 ml Balance 60 ml 0 ml 120 ml 90 ml Intake Oral 60 ml 120 ml 90 ml IV Total 0 ml # Voids 1 2 3 Result Diagram: 05/08/17 1544 Imaging Last Impressions Head CT 05/05/17 0000 Signed Impressions: Service Date/Time: Friday, May 05, 2017 21:02 - CONCLUSION: 1. Stable cerebral atrophy and periventricular/subcortical white matter small vessel ischemic changes bilaterally. 2. No acute infarct, acute hemorrhage, mass effect or extra-axial fluid collections. Himanshu Henriquez MD Objective Remarks GENERAL: This is a well-nourished, well-developed patient, in no apparent distress. CARDIOVASCULAR: Regular rate and regular rhythm without murmurs, gallops, or rubs. RESPIRATORY: Clear to auscultation. Breath sounds equal bilaterally. No wheezes , rales, or rhonchi. GASTROINTESTINAL: Abdomen soft, non-tender, nondistended. Normal, active bowel sounds MUSCULOSKELETAL: Extremities without clubbing, cyanosis, or edema. NEURO: awake and alert Medications and IVs Inpatient Medications Acetaminophen (Tylenol) 650 mg Q4H PRN PO Pain 1-5 or Temp >101F Last administered on 05/05/17at 21:44; Start 05/03/17 at 11:30 Al Hydrox/Mg Hydrox/Simethicone (Mag-Al Plus Susp Liq) 30 ml Q6H PRN PO DYSPEPSIA; Start 05/03/17 at 11:30; Stop 05/03/17 at 12:45; Status DC Amlodipine Besylate (Norvasc) 2.5 mg ONCE ONCE PO Last administered on at 06:05; Start 05/03/17 at 06:00; Stop 05/03/17 at 06:01; Status DC Captopril (Capoten) 25 mg BIDAC PO Last administered on 05/09/17at 06:34; Start 05/05/17 at 16:00 Clonidine (Catapres) 0.1 mg Q6H PRN PO BP>180/100 Last administered on at 03:22; Start 05/03/17 at 12:15 Dextrose (D50w (Vial) Inj) 50 ml UNSCH PRN IV PUSH HYPOGLYCEMIA-SEE COMMENTS Last administered on 05/03/17at 23:32; Start 05/03/17 at 12:15 Donepezil HCl (Aricept) 10 mg HS PO Last administered on 05/08/17at 21:00; Start 05/03/17 at 21:00 Glucagon (Glucagon Inj) 1 mg UNSCH PRN OTHER HYPOGLYCEMIA-SEE COMMENTS; Start 05/03/17 at 12:15 Insulin Aspart (NovoLOG SUPPLEMENTAL SCALE) 1 ACHS SLIDING SCALE SQ Last administered on 05/07/17at 21:00; Start 05/03/17 at 17:00 Insulin Detemir (Levemir Inj) 5 units Q12HR SQ Last administered on 05/09/17at 08 :44; Start 05/05/17 at 21:00 Insulin Human Regular (NovoLIN R INJ) 4 units ONCE ONCE SQ Last administered on 05/02/17at 19:58; Start 05/02/17 at 20:00; Stop 05/02/17 at 20:01; Status DC Lorazepam (Ativan) 0.5 mg ONCE ONCE PO Last administered on 05/03/17at 03:26; Start 05/03/17 at 02:30; Stop 05/03/17 at 02:31; Status DC Magnesium Hydroxide (Milk Of Magnesia Liq) 30 ml DAILY PRN PO CONSTIPATION; Start 05/03/17 at 11:30; Stop 05/03/17 at 12:45; Status DC Memantine (Namenda) 5 mg DAILY PO Last administered on 05/09/17at 08:44; Start at 09:00 Miscellaneous (Pill Splitter) 1 ea UNSCH PRN OTHER SEE LABEL COMMENTS; Start at 12:30 Pravastatin Sodium (Pravachol) 20 mg HS PO Last administered on 05/08/17at 21:00 ; Start 05/03/17 at 21:00 Quetiapine Fumarate (SEROquel) 12.5 mg BID PO ; Start 05/04/17 at 21:00; Stop at 21:00; Status DC Risperidone (risperDAL) 0.5 mg HS PO Last administered on 05/08/17at 21:00; Start 05/05/17 at 21:00 Sodium Chloride 1,000 ml @ 50 mls/hr Q20H IV Last administered on 05/04/17at 12 :00; Start 05/03/17 at 12:45; Stop 05/04/17 at 18:56; Status DC A/P Problem List: (1) DARNELL (acute kidney injury) ICD Code: N17.9 - Acute kidney failure, unspecified (2) Dementia with behavioral disturbance ICD Code: F03.91 - Unspecified dementia with behavioral disturbance Status: Acute (3) Hyperglycemia ICD Code: R73.9 - Hyperglycemia, unspecified Status: Acute Assessment and Plan A/P Dementia with behavioral disturbance: Currently under Archibald act for aggressive behavior. -Continue management per psychiatry -Continue patient's aricept and namenda Mechanical fall: No injuries. - Consulted PT DARNELL: Patient denies any history of kidney disease. Suspect secondary to dehydration. Improved. Seems to be at his baseline now. -encourage oral intake -avoid nephrotoxins -hold patient's metformin -monitor renal function periodically Diabetes with Hyperglycemia: Uncontrolled. Hgb A1C of 11.3. At this point he requires insulin. -Continue Levemir 5 units BID -monitor accu-checks and cover with SSI -hypoglycemia protocol Accelerated Hypertension:now BP overall improved. - Resumed Captopril -clonidine prn -monitor BP, adjust antihypertensives as needed poor oral intake - added glucjesus garcia -consulted electrical discharge machine operator. Hyperlipidemia: chronic -continue patient's statin DVT Prophylaxis: ambulation Problem Qualifiers (1) Dementia with behavioral disturbance: Qualified Codes: F03.91 - Unspecified dementia with behavioral disturbance Gloria Goddard MD May 09, 2017 09:25
--- NOTE | 2017-05-09 11:32 | HHI.PYPN ---
Subjective Remarks The patient was seen today for psychiatric reevaluation. He was seen and discussed with the nurse in charge. Chart was reviewed. On psychiatric evaluation the patient is calm, superficially cooperative, confused and disoriented, but smiling often, in a good spirit. He reports feeling great. Denies depression, denies suicidal and homicidal ideation, denies visual and auditory hallucinations. Compliant with medications,and medical side effects. Review of Systems Except as stated in HPI: all other systems reviewed are Neg Mental Status Examination Appearance: Disheveled Consciousness: Alert Orientation: Person Motor Activity: Other (in bed) Speech: Slow Language: Adequate Fund of Knowledge: Poor (unable to evaluate) Attention and Concentration: Inadequate Memory: Impaired Mood: Appropriate Affect: Appropriate Thought Process & Associations: Intact, Linear Thought Content: Appropriate, Other (unable to determine) Hallucination Type: None Delusion Type: None Suicidal Ideation: No Suicidal Plan: No Suicidal Intention: No Homicidal Ideation: No Homicidal Plan: No Homicidal Intention: No Insight: Poor Judgment: Poor Results Labs Test 05/08/17 15:44 Blood Urea Nitrogen 23 MG/DL Creatinine 1.55 MG/DL Random Glucose 213 MG/DL Calcium Level 8.7 MG/DL Sodium Level 143 MEQ/L Potassium Level 4.3 MEQ/L Chloride Level 105 MEQ/L Carbon Dioxide Level 27.7 MEQ/L Anion Gap 10 MEQ/L Estimat Glomerular Filtration Rate 42 ML/MIN Vitals/IOs Vital Signs Date Time Temp Pulse Resp B/P (MAP) Pulse Ox O2 Delivery O2 Flow Rate FiO2 05/09/17 11:18 05/09/17 06:00 97.9 88 17 92 Intake and Output 05/09/17 05/09/17 05/10/17 08:00 16:00 00:00 Intake Total 90 ml Balance 90 ml Assessment & Plan Problem List: (1) OTHER ALZHEIMER'S DISEASE ICD Codes: G30.8 - OTHER ALZHEIMER'S DISEASE (2) Dementia with behavioral disturbance ICD Codes: F03.91 - Unspecified dementia with behavioral disturbance Status: Acute Assessment & Plan: No changes in psychotropics today. Assessment & Plan Estimated LOS: days Justification for Cont. Inpt. The patient needs to continue psychiatric hospitalization for stabilization and safety. Problem Qualifiers (1) Dementia with behavioral disturbance: Qualified Codes: F03.91 - Unspecified dementia with behavioral disturbance Dilip Tovar MD May 09, 2017 11:32
[2017-05-09 15:13] VITALS: TEMP 96.7
[2017-05-09 18:32] VITALS: BP 132/85; PULSE 80; RESP 16; TEMP 97.8; O2SAT 97
[2017-05-09] MEDS: risperiDONE 0.5 MG TAB PO SCH ×2 (21:00→22:00)
[2017-05-09] MEDS: DONEPEZIL HCL 5 MG TAB PO SCH (21:00)
[2017-05-09] MEDS: PRAVASTATIN SOD 20 MG TAB PO SCH ×2 (21:00→22:00)
[2017-05-10 06:26] VITALS: BP 183/91; PULSE 82; RESP 20; TEMP 97.2; O2SAT 98
[2017-05-10] MEDS: CAPTOPRIL 25 MG TAB PO SCH ×2 (07:00→16:00)
[2017-05-10] MEDS: INSULIN ASPART SUPPLEMENTAL SCALE SQ SCH ×4 (07:27→21:00)
[2017-05-10] MEDS: INSULIN DETEMIR 100 UNITS/ML VIAL SQ SCH ×2 (09:01→22:38)
[2017-05-10] MEDS: risperiDONE 0.25 MG TAB PO SCH (09:01)
[2017-05-10] MEDS: MEMANTINE HCL 5 MG TAB PO SCH (09:01)
--- NOTE | 2017-05-10 09:25 | HHI.PR ---
Subjective Remarks in no distress. resting comfortably. Objective Vitals Vital Signs Date Time Temp Pulse Resp B/P (MAP) Pulse Ox O2 Delivery O2 Flow Rate FiO2 05/10/17 06:26 97.2 82 20 183/91 (121) 98 05/09/17 18:32 97.8 80 16 132/85 (101) 97 05/09/17 15:13 96.7 05/09/17 11:18 I/O 05/09/17 05/09/17 05/09/17 05/10/17 05/10/17 05/10/17 07:00 15:00 23:00 07:00 15:00 23:00 Intake Total 90 ml 120 ml 60 ml Balance 90 ml 120 ml 60 ml Intake Oral 90 ml 120 ml 60 ml # Voids 3 1 1 Result Diagram: 05/08/17 1544 Imaging Last Impressions Head CT 05/05/17 0000 Signed Impressions: Service Date/Time: Friday, May 05, 2017 21:02 - CONCLUSION: 1. Stable cerebral atrophy and periventricular/subcortical white matter small vessel ischemic changes bilaterally. 2. No acute infarct, acute hemorrhage, mass effect or extra-axial fluid collections. Himanshu Henriquez MD Objective Remarks GENERAL: This is a well-nourished, well-developed patient, in no apparent distress. CARDIOVASCULAR: Regular rate and regular rhythm without murmurs, gallops, or rubs. RESPIRATORY: Clear to auscultation. Breath sounds equal bilaterally. No wheezes , rales, or rhonchi. GASTROINTESTINAL: Abdomen soft, non-tender, nondistended. Normal, active bowel sounds MUSCULOSKELETAL: Extremities without clubbing, cyanosis, or edema. NEURO: awake and alert Medications and IVs Inpatient Medications Acetaminophen (Tylenol) 650 mg Q4H PRN PO Pain 1-5 or Temp >101F Last administered on 05/05/17at 21:44; Start 05/03/17 at 11:30 Al Hydrox/Mg Hydrox/Simethicone (Mag-Al Plus Susp Liq) 30 ml Q6H PRN PO DYSPEPSIA; Start 05/03/17 at 11:30; Stop 05/03/17 at 12:45; Status DC Amlodipine Besylate (Norvasc) 2.5 mg ONCE ONCE PO Last administered on at 06:05; Start 05/03/17 at 06:00; Stop 05/03/17 at 06:01; Status DC Captopril (Capoten) 25 mg BIDAC PO Last administered on 05/09/17at 16:00; Start 05/05/17 at 16:00 Clonidine (Catapres) 0.1 mg Q6H PRN PO BP>180/100 Last administered on at 03:22; Start 05/03/17 at 12:15 Dextrose (D50w (Vial) Inj) 50 ml UNSCH PRN IV PUSH HYPOGLYCEMIA-SEE COMMENTS Last administered on 05/03/17at 23:32; Start 05/03/17 at 12:15 Donepezil HCl (Aricept) 10 mg HS PO Last administered on 05/08/17at 21:00; Start 05/03/17 at 21:00 Glucagon (Glucagon Inj) 1 mg UNSCH PRN OTHER HYPOGLYCEMIA-SEE COMMENTS; Start 05/03/17 at 12:15 Insulin Aspart (NovoLOG SUPPLEMENTAL SCALE) 1 ACHS SLIDING SCALE SQ Last administered on 05/09/17at 11:23; Start 05/03/17 at 17:00 Insulin Detemir (Levemir Inj) 5 units Q12HR SQ Last administered on 05/10/17at 09 :01; Start 05/05/17 at 21:00 Insulin Human Regular (NovoLIN R INJ) 4 units ONCE ONCE SQ Last administered on 05/02/17at 19:58; Start 05/02/17 at 20:00; Stop 05/02/17 at 20:01; Status DC Lorazepam (Ativan) 0.5 mg ONCE ONCE PO Last administered on 05/03/17at 03:26; Start 05/03/17 at 02:30; Stop 05/03/17 at 02:31; Status DC Magnesium Hydroxide (Milk Of Magnesia Liq) 30 ml DAILY PRN PO CONSTIPATION; Start 05/03/17 at 11:30; Stop 05/03/17 at 12:45; Status DC Memantine (Namenda) 5 mg DAILY PO Last administered on 05/10/17at 09:01; Start at 09:00 Miscellaneous (Pill Splitter) 1 ea UNSCH PRN OTHER SEE LABEL COMMENTS; Start at 12:30 Pravastatin Sodium (Pravachol) 20 mg HS PO Last administered on 05/08/17at 21:00 ; Start 05/03/17 at 21:00 Quetiapine Fumarate (SEROquel) 12.5 mg BID PO ; Start 05/04/17 at 21:00; Stop at 21:00; Status DC Risperidone (risperDAL) 0.5 mg HS PO Last administered on 05/08/17at 21:00; Start 05/05/17 at 21:00 Sodium Chloride 1,000 ml @ 50 mls/hr Q20H IV Last administered on 05/04/17at 12 :00; Start 05/03/17 at 12:45; Stop 05/04/17 at 18:56; Status DC A/P Problem List: (1) DARNELL (acute kidney injury) ICD Code: N17.9 - Acute kidney failure, unspecified (2) Dementia with behavioral disturbance ICD Code: F03.91 - Unspecified dementia with behavioral disturbance Status: Acute (3) Hyperglycemia ICD Code: R73.9 - Hyperglycemia, unspecified Status: Acute Assessment and Plan A/P Dementia with behavioral disturbance: Currently under Archibald act for aggressive behavior. -Continue management per psychiatry -Continue patient's aricept and namenda Mechanical fall: No injuries. - Consulted PT DARNELL: Patient denies any history of kidney disease. Suspect secondary to dehydration. Improved. Seems to be at his baseline now. -encourage oral intake -avoid nephrotoxins -hold patient's metformin -monitor renal function periodically Diabetes with Hyperglycemia: Uncontrolled. Hgb A1C of 11.3. At this point he requires insulin. -Continue Levemir 5 units BID -monitor accu-checks and cover with SSI -hypoglycemia protocol Accelerated Hypertension:now BP overall improved. - continue Captopril -clonidine prn -monitor BP, adjust antihypertensives as needed poor oral intake - added david garcia -consulted third steel pourer. Hyperlipidemia: chronic -continue patient's statin DVT Prophylaxis: ambulation Problem Qualifiers (1) Dementia with behavioral disturbance: Qualified Codes: F03.91 - Unspecified dementia with behavioral disturbance Gloria Goddard MD May 10, 2017 09:25
--- NOTE | 2017-05-10 10:44 | HHI.PYPN ---
Subjective Remarks The patient was seen today for psychiatric reevaluation, he is minimally cooperative, he is alert can answer some questions, he is smiles very often, but he is pleasantly disoriented, confused. No agitation or aggressive behavior reported. He has been eating about 25% of his meals, compliant with medications, no seems side effects. Mental Status Examination Appearance: Disheveled Consciousness: Alert Orientation: Person Motor Activity: Other (in bed) Speech: Slow Language: Adequate Fund of Knowledge: Poor (unable to evaluate) Attention and Concentration: Inadequate Memory: Impaired Mood: Appropriate Affect: Appropriate Thought Process & Associations: Intact, Linear Thought Content: Appropriate, Other (unable to determine) Hallucination Type: None Delusion Type: None Suicidal Ideation: No Suicidal Plan: No Suicidal Intention: No Homicidal Ideation: No Homicidal Plan: No Homicidal Intention: No Insight: Poor Judgment: Poor Results Vitals/IOs Vital Signs Date Time Temp Pulse Resp B/P (MAP) Pulse Ox O2 Delivery O2 Flow Rate FiO2 05/10/17 06:26 97.2 82 20 183/91 (121) 98 Intake and Output 05/10/17 05/10/17 05/11/17 08:00 16:00 00:00 Intake Total 60 ml Balance 60 ml Assessment & Plan Problem List: (1) OTHER ALZHEIMER'S DISEASE ICD Codes: G30.8 - OTHER ALZHEIMER'S DISEASE (2) Dementia with behavioral disturbance ICD Codes: F03.91 - Unspecified dementia with behavioral disturbance Status: Acute Assessment & Plan Estimated LOS: days Justification for Cont. Inpt. Patient has an elevated risk to decompensate at a lower level of care. Continue current psychotropics. Problem Qualifiers (1) Dementia with behavioral disturbance: Qualified Codes: F03.91 - Unspecified dementia with behavioral disturbance Dilip Tovar MD May 10, 2017 10:44
[2017-05-10 18:30] VITALS: BP 173/77; PULSE 79; RESP 16; TEMP 98.2; O2SAT 96
[2017-05-10] MEDS: DONEPEZIL HCL 5 MG TAB PO SCH (21:00)
[2017-05-10] MEDS: risperiDONE 0.5 MG TAB PO SCH (22:33)
[2017-05-10] MEDS: PRAVASTATIN SOD 20 MG TAB PO SCH (22:34)
[2017-05-11 05:00] VITALS: BP 173/82; PULSE 84; RESP 19; TEMP 98.2; O2SAT 95
[2017-05-11] MEDS: SODIUM CHLOR 0.9% 1000 ML INJ 1,000 ML IV SCH ×2 (05:45→09:45)
[2017-05-11] MEDS: CAPTOPRIL 25 MG TAB PO SCH ×2 (06:27→16:00)
[2017-05-11] MEDS: INSULIN ASPART SUPPLEMENTAL SCALE SQ SCH ×4 (08:00→21:00)
[2017-05-11] MEDS: INSULIN DETEMIR 100 UNITS/ML VIAL SQ SCH ×2 (09:00→21:00)
[2017-05-11] MEDS: risperiDONE 0.25 MG TAB PO SCH (09:58)
[2017-05-11] MEDS: MEMANTINE HCL 5 MG TAB PO SCH (09:58)
--- NOTE | 2017-05-11 10:17 | HHI.PR ---
Subjective Remarks Patient denies any pain. Denies any chest pain or shortness of breath. No acute changes per nursing. Objective Vital Signs Date Time Temp Pulse Resp B/P (MAP) Pulse Ox O2 Delivery O2 Flow Rate FiO2 05/11/17 05:00 98.2 84 19 173/82 (112) 95 05/10/17 18:30 98.2 79 16 173/77 (109) 96 I/O 05/10/17 05/10/17 05/10/17 05/11/17 05/11/17 05/11/17 07:00 15:00 23:00 07:00 15:00 23:00 Intake Total 120 ml 480 ml Balance 120 ml 480 ml Intake Oral 120 ml 480 ml # Voids 1 Result Diagram: 05/08/17 1544 Objective Remarks GENERAL: Lying in bed. Appears comfortable. SKIN: Warm and dry. HEAD: Normocephalic. EYES: No scleral icterus. No injection or drainage. NECK: Supple, trachea midline. No JV. CARDIOVASCULAR: Regular rate and rhythm without murmurs, gallops, or rubs. RESPIRATORY: Breath sounds equal bilaterally. No accessory muscle use. GASTROINTESTINAL: Abdomen soft, non-tender, nondistended. MUSCULOSKELETAL: No cyanosis, or edema. BACK: Nontender without obvious deformity. No CVA tenderness. A/P Assessment and Plan //Dementia with behavioral disturbance: Currently under Archibald act for aggressive behavior. -Continue management per psychiatry -Continue patient's aricept and namenda //Mechanical fall: No injuries. - Consulted PT //DARNELL: Patient denies any history of kidney disease. Suspect secondary to dehydration. Improved. Seems to be at his baseline now. -encourage oral intake -avoid nephrotoxins -hold patient's metformin -monitor renal function periodically. Most recent creatinine 1.5 on 05/08. //Diabetes with Hyperglycemia: Uncontrolled. Hgb A1C of 11.3. At this point he requires insulin. -Continue Levemir 5 units BID -monitor accu-checks and cover with SSI -hypoglycemia protocol //Accelerated Hypertension:now BP overall improved. - continue Captopril -clonidine prn -monitor BP, adjust antihypertensives as needed. Blood pressure elevated. Patient refused medications yesterday. Patient nursing assistance with compliance //poor oral intake - added david garcia -consulted veneer stacker. Appreciate assistance. //Hyperlipidemia: chronic -continue patient's statin //DVT Prophylaxis: ambulation Carlton Jones MD May 11, 2017 10:17
--- NOTE | 2017-05-11 12:41 | HHI.PYPN ---
Subjective Remarks Patient seen for follow-up,chart reviewed. A discussion nursing staff reported the patient has now required IV fluids as patient has been having poor fluid intake as well as poor urine output. Patient has not had any behavioral issues. Patient was found lying in hospital bed, cooperative. Patient continues to be confused and alert and oriented only to person. Patient states he is feeling fine denying any physical complaints at this time patient was encouraged to maintain adequate fluid intake as well as nutritional intake which patient agrees. He denies any perceptual disturbances or delusions at this time. Review of Systems Except as stated in HPI: all other systems reviewed are Neg Mental Status Examination Appearance: Disheveled Consciousness: Alert Orientation: Person Motor Activity: Other (in bed) Speech: Slow Language: Adequate Fund of Knowledge: Poor (unable to evaluate) Attention and Concentration: Inadequate Memory: Impaired Mood: Appropriate Affect: Appropriate Thought Process & Associations: Intact, Linear Thought Content: Appropriate, Other (unable to determine) Hallucination Type: None Delusion Type: None Suicidal Ideation: No Suicidal Plan: No Suicidal Intention: No Homicidal Ideation: No Homicidal Plan: No Homicidal Intention: No Insight: Poor Judgment: Poor Results Vitals/IOs Vital Signs Date Time Temp Pulse Resp B/P (MAP) Pulse Ox O2 Delivery O2 Flow Rate FiO2 05/11/17 05:00 98.2 84 19 173/82 (112) 95 Assessment & Plan Problem List: (1) OTHER ALZHEIMER'S DISEASE ICD Codes: G30.8 - OTHER ALZHEIMER'S DISEASE (2) Dementia with behavioral disturbance ICD Codes: F03.91 - Unspecified dementia with behavioral disturbance Status: Acute Assessment & Plan Patient at this time continues to be confused and disoriented, no behavioral disturbances noted, tolerating medications well. Patient will continue on IV hydration encourage adequate by mouth fluid intake as well as additional intake. Continue to assist patient with meals. Continue current treatment. Continue her medications as per primary medical team. Patient likely be discharged to a nursing facility on 05/14/17. Discharge planning in progress Justification for Cont. Inpt. At risk for further decompensation if at lower level of care Discharge Planning Nursing facility Problem Qualifiers (1) Dementia with behavioral disturbance: Qualified Codes: F03.91 - Unspecified dementia with behavioral disturbance Henry Holliday MD May 11, 2017 12:41
--- NOTE | 2017-05-11 14:17 | PD.TTN ---
Patient Problems 1. Discharge planning 2. Medication compliance 3. Knowledge deficit 4. Lack of coping skills Progress Toward Goals Provider Present: Dr. Justin Holliday Provider Input: 05/08/2017 Per doctor, patient has been sun downing during the evenging; no med changes at this time 05/11/17; meets criteria. Anticipated DC date 05/14/17 Nurse(s) Present: RN Nurse(s) Input: Patient is redirectable, eating meals and taking his medication Psychiatric Counselors Present: ELLIOTT Rodriguez Psych Therapist Input: 05/08/2017 Assign counselor is working with family to establish appropriate placement 05/11/17; pt will be discharged to [facility] on 05-14-17. Group Spec/RT/OT/[place] Present: Maxime Adler OT Group Spec/RT/OT/[place] Input: 05/08/2017; patient has been unable to participate with groups, display poor coping and communication skills Documentation Scribe: ELLIOTT Rodriguez Lane Jr, SEC REPORTING CONSULTANT May 11, 2017 14:17
[2017-05-11 18:00] VITALS: BP 140/68; PULSE 78; RESP 16; TEMP 97.9; O2SAT 96
[2017-05-11] MEDS: DONEPEZIL HCL 5 MG TAB PO SCH (21:00)
[2017-05-11] MEDS: risperiDONE 0.5 MG TAB PO SCH (21:00)
[2017-05-11] MEDS: PRAVASTATIN SOD 20 MG TAB PO SCH (21:00)
[2017-05-12 06:00] VITALS: BP 144/80; PULSE 73; RESP 14; TEMP 97.5; O2SAT 96
[2017-05-12] MEDS: CAPTOPRIL 25 MG TAB PO SCH ×2 (06:24→16:00)
[2017-05-12] MEDS: INSULIN ASPART SUPPLEMENTAL SCALE SQ SCH ×4 (08:00→20:57)
[2017-05-12] MEDS: INSULIN DETEMIR 100 UNITS/ML VIAL SQ SCH ×2 (09:00→20:45)
--- NOTE | 2017-05-12 09:41 | HHI.PR ---
Subjective Remarks was mostly sleeping on my arrival denies any overnight issues noted to be coughing, when asked- stated this is chronic reports he has been feeling tired Objective Vitals Vital Signs Date Time Temp Pulse Resp B/P (MAP) Pulse Ox O2 Delivery O2 Flow Rate FiO2 05/12/17 06:00 97.5 73 14 144/80 (101) 96 05/11/17 18:00 97.9 78 16 140/68 (92) 96 I/O 05/11/17 05/11/17 05/11/17 05/12/17 05/12/17 05/12/17 07:00 15:00 23:00 07:00 15:00 23:00 Intake Total 600 ml 840 ml 240 ml 240 ml Balance 600 ml 840 ml 240 ml 240 ml Intake Oral 600 ml 840 ml 240 ml 240 ml # Voids 2 1 Result Diagram: 05/08/17 1544 Objective Remarks awake, alert, oriented, not in distress hard of hearing - with hearing aid on the left left eye exopthalamos coughing but unable to expectorate heart rate is regular, no murmur lung sounds are equal bilaterally, no rales or wheezing abdomen soft , non tender, no rebound lower extremities with no edema or asymmetry A/P Problem List: (1) DARNELL (acute kidney injury) ICD Code: N17.9 - Acute kidney failure, unspecified (2) Dementia with behavioral disturbance ICD Code: F03.91 - Unspecified dementia with behavioral disturbance Status: Acute (3) Hyperglycemia ICD Code: R73.9 - Hyperglycemia, unspecified Status: Acute Assessment and Plan Impression/ Plan: oliver act / dementia with behavior disturbance by hx- currently calm, able to give his med hx, but not able to recall specifics at times htn - will not do tight control in elderly with dehydration, high fall risk- check BP only while sitting up dm hard of hearing high fall risk with hx of fall- no injury on imaging - PT following DARNELL-per notes; possible CKD in elderly- with htn, dm, and no prior labs- but also has poor oral intake; avoid nephrotoxins, d/c metformin; encourage po intake; d/c iv fluids as pt is elderly with now cough, no improvement in renal function despite iv fluids (thus likely ckd) DM- A1C 11.3; on ssi, levemir 5 units bid Poor oral intake- glucerna/ monomer purification operator on case Hyperlipidemia- on statin dvt prophylaxis with ambulation pt is medically cleared to be transferred to regular psychiatry floor Discharge Planning per psychiatry team Problem Qualifiers (1) Dementia with behavioral disturbance: Qualified Codes: F03.91 - Unspecified dementia with behavioral disturbance Dominga Sanchez MD May 12, 2017 09:41
[2017-05-12] MEDS: risperiDONE 0.25 MG TAB PO SCH (10:33)
[2017-05-12] MEDS: MEMANTINE HCL 5 MG TAB PO SCH (10:33)
--- NOTE | 2017-05-12 12:44 | HHI.PYPN ---
Subjective Remarks On psychiatric evaluation today patient is pleasantly confused and demented, minimally engageable in the conversation, answer with monosyllables yes and no. There is no evidence of distress or pain, no suicidal or homicidal ideation, no visual or auditory hallucinations. In the last 24 hours there is no report of agitation and aggressive behavior, the patient is compliant with his medications, no significant side effects present. Review of Systems Except as stated in HPI: all other systems reviewed are Neg Mental Status Examination Appearance: Disheveled Consciousness: Alert Orientation: Person Motor Activity: Other (in bed) Speech: Slow Language: Adequate Fund of Knowledge: Poor (unable to evaluate) Attention and Concentration: Inadequate Memory: Impaired Mood: Appropriate Affect: Appropriate Thought Process & Associations: Intact, Linear Thought Content: Appropriate, Other (unable to determine) Hallucination Type: None Delusion Type: None Suicidal Ideation: No Suicidal Plan: No Suicidal Intention: No Homicidal Ideation: No Homicidal Plan: No Homicidal Intention: No Insight: Poor Judgment: Poor Results Vitals/IOs Vital Signs Date Time Temp Pulse Resp B/P (MAP) Pulse Ox O2 Delivery O2 Flow Rate FiO2 05/12/17 06:00 97.5 73 14 144/80 (101) 96 Intake and Output 05/12/17 05/12/17 05/13/17 08:00 16:00 00:00 Intake Total 240 ml 240 ml Balance 240 ml 240 ml Assessment & Plan Problem List: (1) OTHER ALZHEIMER'S DISEASE ICD Codes: G30.8 - OTHER ALZHEIMER'S DISEASE (2) Dementia with behavioral disturbance ICD Codes: F03.91 - Unspecified dementia with behavioral disturbance Status: Acute Assessment & Plan: Continue current psychotropic regimen. Assessment & Plan Estimated LOS: days Justification for Cont. Inpt. Patient has an increased risk to decompensate at a lower level of care. Problem Qualifiers (1) Dementia with behavioral disturbance: Qualified Codes: F03.91 - Unspecified dementia with behavioral disturbance Dilip Tovar MD May 12, 2017 12:44
[2017-05-12] MEDS: ACETAMINOPHEN 325 MG TAB PO PRN (18:25)
[2017-05-12 18:30] VITALS: BP 134/65; PULSE 77; RESP 16; TEMP 97.7; O2SAT 96
[2017-05-12] MEDS: risperiDONE 0.5 MG TAB PO SCH (20:46)
[2017-05-12] MEDS: PRAVASTATIN SOD 20 MG TAB PO SCH (20:46)
[2017-05-12] MEDS: DONEPEZIL HCL 5 MG TAB PO SCH (20:57)
[2017-05-13 05:43] VITALS: BP 153/78; PULSE 76; RESP 17; TEMP 97.7; O2SAT 96
[2017-05-13] MEDS: CAPTOPRIL 25 MG TAB PO SCH (07:00)
[2017-05-13] MEDS: INSULIN ASPART SUPPLEMENTAL SCALE SQ SCH (08:00)
[2017-05-13] MEDS: risperiDONE 0.25 MG TAB PO SCH (08:13)
[2017-05-13] MEDS: MEMANTINE HCL 5 MG TAB PO SCH (08:13)
[2017-05-13] MEDS: INSULIN DETEMIR 100 UNITS/ML VIAL SQ SCH (09:00)
[2017-05-13] MEDS ORDERED: CAPT25TA2 PO (09:13)
[2017-05-13] MEDS ORDERED: DONE10TA7 PO (09:13)
[2017-05-13] MEDS ORDERED: LEVEMIR SQ (09:13)
[2017-05-13] MEDS ORDERED: PRAV20TA PO (09:13)
[2017-05-13] MEDS ORDERED: RISP0.5T25 PO (09:13)
[2017-05-13] MEDS ORDERED: RISP.25 PO (09:13)
[2017-05-13] MEDS ORDERED: MEMA1TAB PO (09:13)
--- NOTE | 2017-05-13 09:14 | HHI.DS ---
Psychiatry Discharge Summary Inpatient Psychiatric care?: Yes Advance Directive: No Reason Not Provided: Due to Patient Condition Mental Health AdvanceDirective: No Health Care Proxy: No Admission Admission Date May 03, 2017 at 11:20 Admission Diagnosis: (1) OTHER ALZHEIMER'S DISEASE ICD Code: G30.8 - OTHER ALZHEIMER'S DISEASE (2) Dementia with behavioral disturbance ICD Code: F03.91 - Unspecified dementia with behavioral disturbance Brief History Patient is a man, , domiciled with family with a past psychiatric history of dementia, has hospice care, was brought in under [employer] act from [facility] due to aggressive and volume behavior towards family as well as having swung at a nurse which patient was admitted to the inpatient psychiatry unit for further stabilization. As per collateral obtained in the ED from patient's daughter, Ita Bailey ([phone]) patient previously on Haldol and Ativan and recently had tried to leave the home and get into his car, was stopped from doing this patient had become aggressive. She was found lying in hospital bed noted to have difficulty with hearing require a hearing aid but history was very difficult to obtain due to patient's neurocognitive disorder. Patient reports feeling "fairly well", alert and oriented only to person and to "hospital". Patient states that he is living with his mother and that the reason he is in the hospital because his mother had brought him here due to him having recent falls. Patient denies any manic depressive or psychotic symptoms at this time. Patient continues to be noted to be confused and states that he does not have any children. Patient denies any physical completed at this time. The patient is a 89 years old man, , domiciled with family, past psychiatric history of dementia, no previous psychiatric hospitalizations, no previous suicidal attempts, medical history hypertension, hyperlipidemia, diabetes, he has hospice care basis, who was brought under [employer] act due to aggressive behavior with family members. He was consulted to me for second opinion. On psychiatric evaluation the patient is calm, superficially cooperative, in a good stated, pleasantly demented confused. He doesn't know the reason he is here. Patient contact me his name, but he doesn't know where he is and he doesn't know the time. He denies suicidal and homicidal ideation, he denies visual and auditory hallucinations. Tobacco Use In Past 30 Days: No Tobacco Past 30 Days Alcohol Use: Never Hospital Course Patient is a man, , domiciled with family with a past psychiatric history of dementia, has hospice care, was brought in under Archibald act from [facility] due to aggressive and volume behavior towards family as well as having swung at a nurse which patient was admitted to the inpatient psychiatry unit for further stabilization. Patient was started on quetiapine and titrated up to 0.25mg daily and 0.5 at bedtime which patient tolerated well and noted to be calm and cooperative with staff. He was noted to be irritable at times and occasional episodes of agitation as he continued to have episodes of more confusion but had no recurrence of agitation toward end of admission. Patient was observed to have confusion at baseline secondary to neurocognitive deficits. Patient was observed to have poor immediate and recall memory, alert and oriented only to person and at times to place. Patient was noted to have been compliant with treatment with encouragement, cooperative with staff. Upon discharge patient stated that she was feeling good, denied any psychotic symptoms, denied any SI , HI or delusions. Patient agreed to continue medication regimen and outpatient follow up for continuity of care. I have counseled the patient regarding warning signs for need to return to the psychiatric emergency room as part of a general safety plan. Patient advised to call 911 or go nearest ED in case of emergency. Patient agrees with plan. Results Blood Pressure 153 / 78 Vital Signs Date Time Temp Pulse Resp B/P (MAP) Pulse Ox O2 Delivery O2 Flow Rate FiO2 05/13/17 05:43 97.7 76 17 153/78 (103) 96 Laboratory Results Test 05/04/17 12:55 Cholesterol Level 150 MG/DL (120-200) HDL Cholesterol 39.6 MG/DL (40.0-60.0) Hemoglobin A1c 11.2 % (4.3-6.0) LDL Cholesterol 90 MG/DL (0-99) Triglycerides Level 102 MG/DL (42-150) Summary of Procedures None Imaging Last Impressions Head CT 05/05/17 0000 Signed Impressions: Service Date/Time: Friday, May 05, 2017 21:02 - CONCLUSION: 1. Stable cerebral atrophy and periventricular/subcortical white matter small vessel ischemic changes bilaterally. 2. No acute infarct, acute hemorrhage, mass effect or extra-axial fluid collections. Himanshu Henriquez MD Pending results at discharge: No Medications # of Antipsychotic meds at D/C: 1 Approp Antipsych med options 1 - Minimum of three failed multiple trials of monotherapy. 2 - Documented plan to taper to monotherapy due to previous use of multiple meds OR cross-taper in progress at D/C. 3 - Documentation of augmentation of Clozapine. 4 - Justification other than those listed in allowable values 1-3, document here : Discharge Discharge Date: May 13, 2017 Discharge Diagnosis: (1) OTHER ALZHEIMER'S DISEASE ICD Code: G30.8 - OTHER ALZHEIMER'S DISEASE (2) Dementia with behavioral disturbance ICD Code: F03.91 - Unspecified dementia with behavioral disturbance Status: Acute Pt Condition on Discharge: Stable Discharge Disposition: Discharge to SNF Discharge Instructions Diet Instructions: Heart Healthy Diet Activities you can perform: Weight Bearing as Milly Discharge Time > 30 minutes Mental Status Examination Appearance: Disheveled Consciousness: Alert Orientation: Person Motor Activity: Other (in bed) Speech: Slow Language: Adequate Fund of Knowledge: Poor (unable to evaluate) Attention and Concentration: Inadequate Memory: Impaired Mood: Appropriate Affect: Appropriate Thought Process & Associations: Intact, Linear Thought Content: Appropriate, Other (unable to determine) Hallucination Type: None Delusion Type: None Suicidal Ideation: No Suicidal Plan: No Suicidal Intention: No Homicidal Ideation: No Homicidal Plan: No Homicidal Intention: No Insight: Poor Judgment: Poor Discharge/Advance Care Plan Health Problems: (1) OTHER ALZHEIMER'S DISEASE (2) Dementia with behavioral disturbance Goals to promote your health * To prevent worsening of your condition and complications * To maintain your health at the optimal level Directions to meet your goals Take your medications as prescribed Follow your dietary instruction Follow activity as directed Keep your appointments as scheduled Take your immunizations and boosters as scheduled If your symptoms worsen call your PCP, if no PCP go to Urgent Care Center or Emergency Room For 27/10 questions related to your inpatient stay or results of tests pending at discharge, please contact Dr. Henry Holliday at Smoking is Dangerous to Your Health. Avoid second hand smoking Problem Qualifiers (1) Dementia with behavioral disturbance: Qualified Codes: F03.91 - Unspecified dementia with behavioral disturbance Henry Holliday MD May 13, 2017 09:14
== END 2017-05-13 12:15 | DRG 57 ==
LOC: NEPD 16:40 → NEDA 05-03 11:20 → H4EA 05-03 13:30
PROVIDERS: ADMIT Student in an Organized Health Care Education/Training Program; ATTEND Student in an Organized Health Care Education/Training Program
DX: G30.8 Other Alzheimer's disease (principal); N17.9 Acute kidney failure, unspecified; F02.81 Dementia in other diseases classified elsewhere, unspecified severity, with behavioral disturbance; E11.65 Type 2 diabetes mellitus with hyperglycemia; Z79.84 Long term (current) use of oral hypoglycemic drugs; I10 Essential (primary) hypertension; E78.5 Hyperlipidemia, unspecified; H91.90 Unspecified hearing loss, unspecified ear; E86.0 Dehydration; W18.30XA Fall on same level, unspecified, initial encounter; Y92.239 Unspecified place in hospital as the place of occurrence of the external cause; Z85.828 Personal history of other malignant neoplasm of skin
CPT/HCPCS: 70450; 80048; 80053; 80061; 81001; 82306; 82550; 82607; 82947; 82948; 83036; 84439; 84443; 85025; 93005; 96372; J1815; J7030

== ENCOUNTER 2017-06-07 21:08 | Emergency (ER) | payer MEDICARE, OTHER ==
[~2017-06-07 21:08] MED LIST: CAPT25TA2 PO; DONE10TA7 PO; LEVEMIR SQ; MEMA1TAB PO; PRAV20TA PO; RISP.25 PO; RISP0.5T25 PO
[2017-06-07 21:49] VITALS: BP 128/59; PULSE 73; RESP 14; O2SAT 96
[2017-06-07] MEDS ORDERED: TETANUS/DIPHTHERIA TOXOID ADULT 0.5 ML VIAL IM ONE (22:00)
[2017-06-07] MEDS ORDERED: LIDOCAINE 1%/EPINEPHrine 1:100,000 SOLN 20 ML VIAL INFIL ONE (22:00)
--- NOTE | 2017-06-07 22:03 | PD ---
HPI Chief Complaint: Fall Time Seen by Provider: 21:48 Travel History International Travel<30 days: No Contact w/Intl Traveler<30days: No Traveled to known affect area: No History of Present Illness HPI 89-year-old male complains of was brought in by EMS from local half-way for laceration to left forehead and left eyebrow. Patient reported by half-way staff that fell off a wheelchair. [facility] staff reported no loss of consciousness. Patient has history of severe dementia and unable to provide information. [facility] staff reported no persistent vomiting. [facility] staff reported no other injury. Unknown TD booster status. PFSH Past Medical History Autoimmune Disease: No Cancer: Yes (PROSTATE AND FACE) Cardiovascular Problems: No Chemotherapy: Yes (FACE) Diabetes: Yes Diminished Hearing: Yes ([place] BILAT, HEARING AID NOT WORKING) Endocrine: Yes Genitourinary: Yes Hypertension: Yes Immune Disorder: No Kidney Stones: Yes Musculoskeletal: No Neurologic: Yes Psychiatric: No Reproductive: No Respiratory: No Radiation Therapy: Yes (FACE) Past Surgical History Abdominal Surgery: Yes (APPE) Eye Surgery: Yes (CATARACTS) Genitourinary Surgery: Yes (KIDNEY STONES WITH LITHOTRISPY) Tonsillectomy: Yes (AND ADENOIDS) Other Surgery: Yes (SKIN CA REMOVED) Social History Alcohol Use: No Tobacco Use: No Substance Use: No Allergies-Medications (Allergen,Severity, Reaction): Coded Allergies: adhesive tape (Verified Allergy, Unknown, 06/07/17) PER DOCUMENTATION PROVIDED BY [facility] cephalexin (Verified Allergy, Unknown, 06/07/17) PER DOCUMENTATION PROVIDED BY [facility] diphenhydramine (Verified Allergy, Unknown, 06/07/17) PER DOCUMENTATION PROVIDED BY [facility] Reported Meds & Prescriptions Reported Meds & Active Scripts Active Levemir Inj (Insulin Detemir) 1,000 unit/ 10 ML Vial 5 Units SQ Q12HR 30 Days Do not mix with any other Insulin. Risperdal (Risperidone) 0.5 Mg Tab 0.5 Mg PO HS 30 Days Risperdal (Risperidone) 0.25 Mg Tab 0.25 Mg PO DAILY 30 Days Pravachol (Pravastatin) 20 Mg Tab 20 Mg PO HS 30 Days Donepezil 10 Mg Tab 10 Mg PO HS 30 Days Memantine 5 Mg Tab 5 Mg PO DAILY 30 Days Captopril 25 Mg Tab 25 Mg PO BIDAC 30 Days Take 1 hr before meals. Review of Systems General / Constitutional: No: Fever Eyes: No: Visual changes HENT: No: Headaches Cardiovascular: No: Chest Pain or Discomfort Respiratory: No: Shortness of Breath Gastrointestinal: No: Abdominal Pain Genitourinary: No: Dysuria Musculoskeletal: No: Pain Skin: No Rash Neurologic: No: Weakness Psychiatric: No: Depression Endocrine: No: Polydipsia Hematologic/Lymphatic: No: Easy Bruising Physical Exam Narrative GENERAL: Well-nourished, well-developed patient. SKIN: Focused skin assessment warm/dry. HEAD: Normocephalic. Patient has 3 cm laceration left forehead above the left eyebrow. EYES: No scleral icterus. No injection or drainage. Pupils 1.5 mm equal reactive. Mild edema left upper eyelid. NECK: Supple, trachea midline. No JVD or lymphadenopathy. CARDIOVASCULAR: Regular rate and rhythm without murmurs, gallops, or rubs. RESPIRATORY: Breath sounds equal bilaterally. No accessory muscle use. GASTROINTESTINAL: Abdomen soft, non-tender, nondistended. MUSCULOSKELETAL: No cyanosis, or edema. BACK: Nontender without obvious deformity. No CVA tenderness. Neurologic exam: Patient lying in bed noncommunicable. Patient in contracture position. Data Data Last Documented VS Vital Signs Date Time Temp Pulse Resp B/P (MAP) Pulse Ox O2 Delivery O2 Flow Rate FiO2 06/07/17 21:49 73 14 128/59 (82) [address] Brain W/O Iv Contrast(Rout) (06/07/17 21:54) Ct Cerv Spine W/O Contrast (06/07/17 21:54) Tetanus/Diphtheria Tox Adult (Tetanus/Di (06/07/17 22:00) Lidocai-Epi 1%-1:100,000 Inj (Xylocaine- (06/07/17 22:00) Ed Discharge Order (06/07/17 23:08) MDM Medical Decision Making Medical Screen Exam Complete: Yes Emergency Medical Condition: Yes Interpretation(s) 23:[address] cervical spine and brain shows no acute process. Differential Diagnosis Differential diagnosis including laceration, skull fracture, intracranial hemorrhage, cervical spine injury. Narrative Course 89-year-old male with forehead injury, forehead laceration. Td booster given. Diagnosis Primary Impression: Forehead laceration Qualified Codes: S01.81XA - Laceration without foreign body of other part of head, initial encounter Additional Impression: Closed head injury Qualified Codes: S09.90XA - Unspecified injury of head, initial encounter Patient Instructions: General Instructions Additional Instructions: Wound care daily. Head trauma instructions given. Suture removal in 7 days. Med/Other Pt SpecificInfo: No Change to Meds Disposition: 03 DISCHARGE TO SNF Condition: Stable Corby Pfeiffer MD Jun 07, 2017 22:03
--- NOTE | 2017-06-07 22:36 | PD ---
Physical Exam Date Seen by Provider: Jun 07, 2017 Time Seen by Provider: 22:34 Narrative For full history and physical examination please see previous provider's note. I was asked to repair laceration to patient's left eye lid. Data Data Last Documented VS Vital Signs Date Time Temp Pulse Resp B/P (MAP) Pulse Ox O2 Delivery O2 Flow Rate FiO2 06/07/17 21:49 73 14 128/59 (82) [address] Brain W/O Iv Contrast(Rout) (06/07/17 21:54) Ct Cerv Spine W/O Contrast (06/07/17 21:54) Tetanus/Diphtheria Tox Adult (Tetanus/Di (06/07/17 22:00) Lidocai-Epi 1%-1:100,000 Inj (Xylocaine- (06/07/17 22:00) MDM Medical Record Reviewed: Yes Supervised Visit with KILEY: Yes Procedures Procedure Narrative LACERATION LOCATION: Left upper eyelid LENGTH: 2 cm NUMBER OF STITCHES/SEVERO: 5 stitches REPAIR: The area of the laceration was prepped with Betadine and sterilely draped. The laceration was infiltrated with 1% Xylocaine. The wound was copiously irrigated and explored without evidence of foreign body, tendon injury or neurovascular injury. The wound was closed using 5-0 Prolene. This was a 1 layer repair. A sterile dressing was applied. The patient was advised to keep the dressing clean and dry. Patient tolerated the procedure well. Diagnosis Primary Impression: Forehead laceration Qualified Codes: S01.81XA - Laceration without foreign body of other part of head, initial encounter Additional Impression: Closed head injury Qualified Codes: S09.90XA - Unspecified injury of head, initial encounter Patient Instructions: General Instructions Additional Instruction: Wound care daily. Head trauma instructions given. Disposition: 03 DISCHARGE TO SNF Condition: Stable Meg Jaime Constance HANKINS Jun 07, 2017 22:36
--- NOTE | 2017-06-07 22:55 | RADRPT ---
EXAM DATE/TIME: 06/07/2017 22:38 [facility] COMPARISON: No previous studies available for comparison. INDICATIONS : Trauma; fall. RADIATION DOSE: 66.34 CTDIvol (mGy) MEDICAL HISTORY : Dementia. Hypertension. Carcinoma, prostate.Diabetes SURGICAL HISTORY : None. ENCOUNTER: Initial ACUITY: 1 day PAIN SCALE: Non-responsive LOCATION: cranial TECHNIQUE: Multiple contiguous axial images were obtained of the head. Using automated exposure control and adj ustment of the mA and/or kV according to patient size, radiation dose was kept as low as reasonably a chievable to obtain optimal diagnostic quality images. DICOM format image data is available electro nically for review and comparison. FINDINGS: CEREBRUM: The ventricles are normal for age. No evidence of midline shift, mass lesion, hemorrhage or acute in farction. No extra-axial fluid collections are seen. POSTERIOR FOSSA: The cerebellum and brainstem are intact. The 4th ventricle is midline. The cerebellopontine angle i s unremarkable. EXTRACRANIAL: The visualized portion of the orbits is intact. SKULL: The calvaria is intact. No evidence of skull fracture. CONCLUSION: 1. No acute findings. No significant change since May 05. Cortical volume loss. Johnson Ratliff MD on June 07, 2017 at 22:52 Board Certified Radiologist. This report was verified electronically.
--- NOTE | 2017-06-07 22:58 | RADRPT ---
EXAM DATE/TIME: 06/07/2017 22:38 [facility] COMPARISON: No previous studies available for comparison. INDICATIONS : Trauma; fall. RADIATION DOSE: 28.09 CTDIvol (mGy) MEDICAL HISTORY : Dementia. Hypertension. Carcinoma, prostate.Diabetes SURGICAL HISTORY : Appendectomy. ENCOUNTER: Initial ACUITY: 1 day PAIN SCALE: Non-responsive LOCATION: neck TECHNIQUE: Volumetric scanning of the cervical spine was performed. Multiplanar reconstructions in the sagittal, coronal and oblique axial planes were performed. Using automated exposure control and adjustment o f the mA and/or kV according to patient size, radiation dose was kept as low as reasonably achievable to obtain optimal diagnostic quality images. DICOM format image data is available electronically f or review and comparison. FINDINGS: Bones are osteopenic. Moderate to severe degenerative disc disease and facet arthropathy present. No fracture or spondylolisthesis. No significant bony canal stenosis. CONCLUSION: 1. Moderate to severe degenerative change. No acute findings. Johnson Ratliff MD on June 07, 2017 at 22:53 Board Certified Radiologist. This report was verified electronically.
[2017-06-08 02:36] VITALS: BP 168/77; PULSE 74; RESP 16; O2SAT 97
[2017-06-08 07:00] VITALS: BP 142/63; PULSE 74; RESP 17; O2SAT 96
== END 2017-06-08 09:20 ==
LOC: NEPE 21:08 → NEPD 06-08 09:20
DX: S01.81XA Laceration without foreign body of other part of head, initial encounter (principal); F03.90 Unspecified dementia, unspecified severity, without behavioral disturbance, psychotic disturbance, mood disturbance, and anxiety; E11.9 Type 2 diabetes mellitus without complications; I10 Essential (primary) hypertension; W05.0XXA Fall from non-moving wheelchair, initial encounter; Y92.129 Unspecified place in nursing home as the place of occurrence of the external cause; Z23 Encounter for immunization; Z79.4 Long term (current) use of insulin
CPT/HCPCS: 12011; 70450; 72125; 90471; 90714

== ENCOUNTER 2017-06-23 02:40 | Emergency (ER) | payer MEDICARE ==
[~2017-06-23] VITALS: Ht 172.7 cm; Wt 60.0 kg
[2017-06-23 02:46] VITALS: BP 127/65; PULSE 86; RESP 20; O2SAT 94
--- NOTE | 2017-06-23 02:48 | PD ---
HPI Chief Complaint: altered mental status Time Seen by Provider: 02:48 Travel History International Travel<30 days: No Contact w/Intl Traveler<30days: No Traveled to known affect area: No History of Present Illness HPI 89-year-old male came to the emergency room brought by EMS for altered mental status found in the [facility] little while ago. The call 911 and patient was brought in. There is a possibility of aspiration. Patient is in no condition to give any meaningful history. He responds to pain and GCS is 13. Patient is a DNR. [facility] Past Medical History Narrative Medical List of his past medical, surgical, social and family history is reviewed from the nursing note. Autoimmune Disease: No Cancer: Yes (PROSTATE AND FACE) Cardiovascular Problems: No Chemotherapy: Yes (FACE) Diabetes: Yes Diminished Hearing: Yes (HAV[place]I BILAT, HEARING AID NOT WORKING) Endocrine: Yes Genitourinary: Yes Hypertension: Yes Immune Disorder: No Kidney Stones: Yes Musculoskeletal: No Neurologic: Yes Psychiatric: No Reproductive: No Respiratory: No Radiation Therapy: Yes (FACE) Past Surgical History Abdominal Surgery: Yes (APPE) Eye Surgery: Yes (CATARACTS) Genitourinary Surgery: Yes (KIDNEY STONES WITH LITHOTRISPY) Tonsillectomy: Yes (AND ADENOIDS) Other Surgery: Yes (SKIN CA REMOVED) Social History Alcohol Use: No Tobacco Use: No Substance Use: No Allergies-Medications (Allergen,Severity, Reaction): Coded Allergies: adhesive tape (Verified Allergy, Unknown, 06/07/17) PER DOCUMENTATION PROVIDED BY [employer] cephalexin (Verified Allergy, Unknown, 06/07/17) PER DOCUMENTATION PROVIDED BY [employer] diphenhydramine (Verified Allergy, Unknown, 06/07/17) PER DOCUMENTATION PROVIDED BY [employer] Comments List of his allergies reviewed from the nursing note. Reported Meds & Prescriptions Reported Meds & Active Scripts Active Levemir Inj (Insulin Detemir) 1,000 unit/ 10 ML Vial 5 Units SQ Q12HR 30 Days Do not mix with any other Insulin. Risperdal (Risperidone) 0.5 Mg Tab 0.5 Mg PO HS 30 Days Risperdal (Risperidone) 0.25 Mg Tab 0.25 Mg PO DAILY 30 Days Pravachol (Pravastatin) 20 Mg Tab 20 Mg PO HS 30 Days Donepezil 10 Mg Tab 10 Mg PO HS 30 Days Memantine 5 Mg Tab 5 Mg PO DAILY 30 Days Captopril 25 Mg Tab 25 Mg PO BIDAC 30 Days Take 1 hr before meals. Narrative Medication List of his home medications reviewed from the nursing note. Review of Systems ROS Limitations: Altered Mental Status Except as stated in HPI: all other systems reviewed are Neg Physical Exam Narrative GENERAL: Unresponsive, elderly, moderate distress SKIN: Focused skin assessment warm/dry. HEAD: Atraumatic. Normocephalic. EYES: Pupils equal and round. No scleral icterus. No injection or drainage. ENT: No nasal bleeding or discharge. Mucous membranes pink and moist. NECK: Trachea midline. No JVD. CARDIOVASCULAR: Regular rate and rhythm. No murmur appreciated. RESPIRATORY: No accessory muscle use. Clear to auscultation. Breath sounds equal bilaterally. GASTROINTESTINAL: Abdomen soft, non-tender, nondistended. Hepatic and splenic margins not palpable. MUSCULOSKELETAL: No obvious deformities. No clubbing. No cyanosis. No edema. NEUROLOGICAL: GCS of 10. No obvious cranial nerve deficits. Motor grossly within normal limits. Nonverbal PSYCHIATRIC: Unable to assess Data Data Last Documented VS Orders Orders Code Status (06/23/17 03:02) Ed Comfort Care (06/23/17 03:02) Resp Oxygen Nasal Cannula (06/23/17 ) Hospice Consult (06/23/17 03:02) Morphine Inj (Morphine Inj) (06/23/17 03:15) Ed Discharge Order (06/23/17 03:04) MDM Medical Decision Making Medical Screen Exam Complete: Yes Emergency Medical Condition: Yes Medical Record Reviewed: Yes Differential Diagnosis Sepsis, aspiration pneumonia, UTI, [place], CHF Narrative Course 2:06 AM patient appears to be actively dying at this point. He is a DNR. Before attempting to do any tests I discussed with his on the phone patient 's current condition. She said that patient's wishes were when the time comes not to do anything aggressive and just let him go. At this point I brought them the option of comfort measure which the willingly agreed. I have ordered the Comfort Care protocol. Awaiting for hospice to come in after which patient will be sent back to the [facility] with hospice care. I've also ordered morphine for the patient for comfort measure. Procedures EKG Prior to Arrival: No Diagnosis Primary Impression: Dying care Additional Instructions: Comfort measure as directed by hospice Disposition: 01 DISCHARGE HOME Condition: Stable Lico,Shravanti R. MD Jun 23, 2017 02:48
[2017-06-23] MEDS: MORPHINE SULFATE 4 MG/ML INJ IV PUSH PRN ×3 (04:25→09:33)
[2017-06-23 09:23] VITALS: BP 90/35; PULSE 121; RESP 24; O2SAT 92
[2017-06-23 09:39] VITALS: O2SAT 90
[2017-06-23 10:31] VITALS: TEMP 98.7; O2SAT 94
[2017-06-23 11:28] VITALS: BP 100/52; PULSE 115; RESP 24; O2SAT 94
== END 2017-06-23 15:10 | disposition home or self-care (01) ==
LOC: NEPE 02:40
DX: Z51.5 Encounter for palliative care (principal); R41.82 Altered mental status, unspecified; E11.9 Type 2 diabetes mellitus without complications; I10 Essential (primary) hypertension; Z66 Do not resuscitate; Z79.4 Long term (current) use of insulin
CPT/HCPCS: 96374; 99284; J2270